=== PATIENT | male | born 1945 | race Caucasian/White ===

== ENCOUNTER → 2023-07-22 | Outpatient (CLI) | payer MEDICARE ==
--- NOTE | 2023-07-22 13:13 | XR ---
EXAMINATION TYPE: XR skull limited DATE OF EXAM: 07/22/2023 12:56 PM CLINICAL INDICATION:Male, 78 years old with history of Z10.10 retained metal fragments PRE MRI; [facility] COMPARISON: None. TECHNIQUE: Frontal and lateral views of the skull. FINDINGS: No evidence to suggest radiopaque foreign body. Soft tissues and osseous structures are within norm al limits. IMPRESSION: No evidence of radiopaque foreign body.
== END | disposition home or self-care (01) ==
LOC: RADXRMAIN 12:43
PROVIDERS: ATTEND Orthopaedic Surgery
DX: Z18.10 Retained metal fragments, unspecified (principal)
CPT/HCPCS: 70250

== ENCOUNTER → 2023-07-23 | Outpatient (CLI) | payer MEDICARE ==
--- NOTE | 2023-07-23 13:40 | CT ---
The EXAMINATION TYPE: CT lumbar spine wo con DATE OF EXAM: 07/23/2023 COMPARISON: Lumbar spine 07/23/2022 HISTORY: Low back pain CT DLP: [address] of the lumbar spine was performed. Bone and soft tissue window settings are submitted as well as coronal and sagittal reconstructions. L1-L2: Mild degenerative narrowing without disc bulge or herniation. No central stenosis present. No facet joint arthropathy. No evidence for foraminal encroachment. L2-L3: Moderate to severe degenerative disc space narrowing and vacuum disc seen. Posterior disc bulg e. Hypertrophy of the ligamentum flavum and facet joint arthropathy result in borderline to mild cent ral stenosis. Left greater than right foraminal encroachment. L3-L4: Decompressive laminectomy noted. Recurrent disease. Pedicular screws are in place. Postoperati ve alignment is anatomic. L4-L5: Severe disc desiccation with vacuum disc seen. Posterior disc bulge with partial encapsulating spur resulting in disc endplate complex. There is borderline to mild central stenosis present. Moder ate bilateral foraminal encroachment. L5-S1: Severe degenerative disc space narrowing. No significant disc bulge. Mild posterior hypertroph ic change mildly effaces the thecal sac and results in right lateral recess stenosis and right forami nal encroachment. No paraspinal masses are identified. Lumbar segments are free if fracture. Incidental left-sided non obstructive nephrolithiasis. IMPRESSION: 1. Disc disease as noted. 2. Borderline to mild central stenosis as outlined above. 3. Postoperative changes at L3-4.
--- NOTE | 2023-07-24 12:13 | MR ---
EXAMINATION TYPE: MR lumbar spine wo con DATE OF EXAM: 07/23/2023 3:31 PM CLINICAL INDICATION:Male, 78 years old with history of M54.50 low back pain, Low back pain into left side, Hx of surgery L4/5, Hx of Bladder cancer x15 years ago COMPARISON: 07/23/2023 CT TECHNIQUE: Multi planar, multi sequence imaging was performed utilizing: T1-weighted, T2-weighted, a nd turbo inversion recovery imaging of the lumbar spine. IV Contrast: (None if empty) FINDINGS: Alignment: The lumbar vertebral bodies have preserved heights and alignment. Cord: The conus medullaris and the distal spinal cord appear unremarkable with regards to their signa l intensity and morphology. Cauda equina bunching at the level of L2-L3 Bones/Discs: Postsurgical changes at L3-L4. Susceptibility artifact limits evaluation. Multilevel dis c degeneration changes with osteophyte formation, disc space narrowing, and facet joint arthropathy. Mild bony edema at the inferior endplate of L2 and the L3 vertebrae. T12-L1: No evidence of significant spinal canal stenosis or neural foraminal stenosis. L1-L2: Disc bulge and facet joint arthropathy result in mild to moderate spinal canal and mild bilate ral neural foraminal stenosis. L2-L3: Osteophyte formation and facet joint arthropathy result in severe spinal canal stenosis. The n eural foramen are mild to moderately narrowed. L3-L4: Postsurgical change with hardware in place. Mild spinal canal stenosis secondary to osteophyte formation and facet joint arthropathy. There is mild bilateral neural foraminal stenosis. L4-L5: Postsurgical change with hardware in place. Mild spinal canal stenosis secondary to osteophyte formation and facet joint arthropathy. There is mild bilateral neural foraminal stenosis. L5-S1: Disc space narrowing with osteophytes are present. The osteophytes on the right efface the for jaxson nerve roots. Facet joint arthropathy with mild bilateral neural foraminal stenosis. Spinal canal is patent. Significant spinal canal or neural foraminal stenosis in the remainder of the visualized levels. Other findings: None. IMPRESSION: 1. L2-L3 severe spinal canal stenosis secondary to osteophytes, facet joint arthropathy and disc bul ging. There is mild to moderate neural foraminal stenosis at this level. 2. Postsurgical changes with mild multilevel neural foraminal stenosis.
== END | disposition home or self-care (01) ==
LOC: RADCTMAIN 12:59
PROVIDERS: ATTEND Orthopaedic Surgery
DX: M48.061 Spinal stenosis, lumbar region without neurogenic claudication (principal); M51.36 Other intervertebral disc degeneration, lumbar region; M47.816 Spondylosis without myelopathy or radiculopathy, lumbar region; Z98.890 Other specified postprocedural states
CPT/HCPCS: 72131; 72148

== ENCOUNTER → 2023-10-25 | Outpatient (CLI) | payer MEDICARE ==
--- NOTE | 2023-10-25 11:18 | XR ---
EXAMINATION TYPE: XR chest 2V DATE OF EXAM: 10/25/2023 COMPARISON: None INDICATION: Presurgical clearance, shortness of breath TECHNIQUE: Frontal and lateral views of the chest are obtained. FINDINGS: The heart size is normal. Surrounding wires are present from prior CABG. The pulmonary vasculature is normal. The lungs are clear. IMPRESSION: 1. No acute pulmonary process.
[2023-10-25 17:55] LABS: INR 1.04 sec (0.93-1.11); Prothrombin Time 11.2 sec (9.9-11.9)
== END | disposition home or self-care (01) ==
LOC: LABPAT 09:56
PROVIDERS: ATTEND Orthopaedic Surgery
DX: Z01.818 Encounter for other preprocedural examination (principal); I25.2 Old myocardial infarction; I45.10 Unspecified right bundle-branch block; I44.0 Atrioventricular block, first degree; M43.16 Spondylolisthesis, lumbar region; M48.061 Spinal stenosis, lumbar region without neurogenic claudication; R58 Hemorrhage, not elsewhere classified; R05.9 Cough, unspecified; R06.02 Shortness of breath; R94.31 Abnormal electrocardiogram [ECG] [EKG]; Z22.322 Carrier or suspected carrier of Methicillin resistant Staphylococcus aureus
CPT/HCPCS: 36415; 71046; 85610; 86850; 86900; 86901; 87070; 93005

== ENCOUNTER → 2023-10-31 | Outpatient (CLI) | payer MEDICARE ==
[~2023-10-31] MED LIST: DOBUTamine DRIP for NUC MED 500 MG in DEXTROSE/WATER 1 250ML.BAG IV PRN; DOBUTamine DRIP for NUC MED 500 MG/250 ML BAG IV ONE
--- NOTE | 2023-10-31 10:25 | CA ---
Dobutamine Stress Echocardiogram Report Josias Oglesby Age: 78 Gender: M : 1945 Exam Date: 10/31/2023 09:47 Exam Location: [facility] Ordering Physician: Vijay Garcias DO Referring Physician: Daxa Vora [facility] Digester Capper: ADRIANA LUND Technologist: Ht (in): 69 Wt (lb): 235 Procedure CPT: Indication: I10 ESSENTIAL (PRIMARY) HYPERTENSION ICD-9 Codes: Rhythm: Patient History: Cardiac Medications: SEE LIST Medications in past 24 hours: Contrast: N/A Total Dose (mL): NA Stress Results Protocol: Dobutamine Peak Dose (???g/kg/min): 30 Duration (min:sec): Atropine:(mg) None Target HR: 119 Double Product: Resting HR: 67 Resting BP: 129 / 57 Peak HR: 123 Peak BP: 163 / 55 Max Predicted HR: 140 88 % Max Predicted HR Stress Summary: BP Response: Reason for Termination: Exceeded target heart rate (85% max predicted) Cardiac Symptoms: HOT FLASH ECG Analysis Resting EKG: Normal sinus rhythm with right bundle branch block Stress EKG: Patient was given intravenous dobutamine per protocol achieving 85% of predicted maximal heart rate without chest pain Arrhythmia: Echo Analysis Base Echo Analysis: Normal left ventricle a size wall motion systolic function Low Echo Anaylsis: Normal Peak Echo Analysis: Normal hyperdynamic response Recovery Echo: Normal MEASUREMENTS (Male/Female) Normal Values CONCLUSIONS Inconclusive EKG part of the stress test due to baseline EKG abnormalities Negative dobutamine stress echo Dr. Abhi Zapien MD (Electronically Signed) Final Date: 31 October 2023 10:25
== END | disposition home or self-care (01) ==
LOC: RADNMMAIN 10-29 09:12
PROVIDERS: ATTEND Family Medicine
DX: I10 Essential (primary) hypertension (principal); I25.42 Coronary artery dissection
CPT/HCPCS: 93351

== ENCOUNTER 2023-11-04 05:34 | Inpatient (IN) | payer MEDICARE ==
--- NOTE | 2023-11-03 10:33 | P.HPOR ---
History of Present Illness H&P Date: 10/25/23 .D:Date: 10/25/23 : 09:53am .T:Title: [facility] History and Physical Date of :[birth year] C63Wicmabccs: NKDA Age: 78 year Height: 5'9" Weight: 235 lbs BMI: 33.23 kg/m2 Occupation:Retired VAS: 9 Hand:Right IMPRESSION: It was my pleasure to have seen and examined Edward. I reviewed the patient's clinical syndrome, physical findings, and imaging studies during the appointment today. It is my impression that the patient has a diagnosis of. 1. Grade I spondylolisthesis of L2 on L3 2. L2-3 spondylosis with stenosis, severe 3. Bilateral lower extremity radiculopathy 4. Bilateral lower extremity weakness 5. Low back pain I outlined the natural course history without intervention and various interventional options. Spine Surgery Risk Review Mr. Oglesby is presenting for evaluation of low back and bilateral lower extremity pain, bilateral lower extremity numbness, tingling, and weakness. It was my pleasure to have seen and examined Mr. Oglesby. In our visit today we have had a chance to go over subjective complaints, physical examination findings and treatments including the natural course history without intervention and various interventional options. The patients imaging demonstrates: XRay Lumbar Multiview (AP, Lateral, Flexion, Extension) with AP pelvis; [address] [facility] on 05/23/23: - Re-reviewed with the patient today. Previous hardware is present that include rods and screws located L3-L4 level with prosthetic disc. Hardware is intact, no migration. Spondylotic and degenerative changes. 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 Vertebral body heights are preserved. No acute osseous abnormalities. AP Pelvis: No fractures or dislocation. Bilateral hip osteoarthritis is present. CT [facility] from07/23[facility]2023 of LumbarSpine: Images reviewed This demonstrates severe spondylosis from L2 through S1. There is previous fusion construct at L2 L3 L4 with reasonable fusion mass. There is autofusion L4 5 and L5-S1 with transitional anatomy. There is severe spondylosis L2-L3 with disc height collapse and endplate erosion facet arthrosis central and foraminal stenosis secondary to the collapse as well as osteophyte formation and adjacent segment disease. No acute fractures otherwise noted. No lesions.grade 1 spondylolisthesis L2-L3 MRI scancompleted [facility] from07/23/2023 of LumbarSpine: Images reviewed this again demonstrates fairly severe adjacent segment disease at L2-L3 with previous fusion construct below this. Multilevel spondylosis noted with essentially auto fusion from L4 through S1 with transitional anatomy. Adjacent segment disease at L2-L3 causes severe central stenosis as well as bilateral foraminal stenosis. There is turbulent flow proximal to this secondary to the stenosis. No acute fracture notedgrade 1 spondylolisthesis L2-L3 On physical exam, Mr. Oglesby demonstrates: A continued ache-like pain throughout the low back that radiates down into the buttocks and bilateral lower extremities. He states that most of his lower extremity pain persists around the bilateral anterior thigh. The patient states that his lower extremity pain is associated with numbness, tingling, and weakness. The patient states his pain worsens after prolonged walking without the use of his walker. The patient states that his symptoms have progressively worsened since he was last evaluated in office on 07/08/2023. I have explained to the patient that as their condition progresses it will cause further neurological deficits and eventual paralysis. Based on the patients imaging, physical exam, and the rapid progression and disabling nature of their symptoms, at this time I recommend surgery in the form of a: Stage I: L2-3 lateral interbody fusion followed by Stage II: L2-3 posterior stabilization and fusion . I discussed the risk and benefits of this procedure at length with Mr. Oglesby. The patient agreed to considered pursuing the procedure abovementioned. Prior to surgery, she should follow up with her PCP (Cardio, ID, IM etc) for clearance. Questions were invited and answered, and the patient wishes to proceed as outlined below. Currently, I am recommendin.Stage I: L2-3 lateral interbody fusion followed by Stage II: L2-3 posterior stabilization and fusion 2.Review of surgical risks and benefits as well as an educational packet on the proposed surgical procedure. Risks: All surgical procedures come with inherent risks, including those related to positioning, anesthesia, intraoperative findings, and postoperative complications. It is important to understand that surgery does not come with any guarantee of a successful outcome as complications and adverse events are always possible. The patient was given a handout in office today discussing the surgical procedure and risks associated with the intervention, both of which were discussed with the patient. These risks include but are not limited to the following: * Experiencing same, different or even worse symptoms in back, neck, arms, or legs compared to before surgery. Requiring further surgery or other forms of treatment presently or at some time in the future at same or other levels of the intended spine surgery. On an extreme but fortunately relatively rare basis severe complication such as blindness, stroke, heart attack, temporary and/or permanent nerve injury, paralysis, coma, or may occur, sometimes without known explanation. Surgical complications may include but are not limited to risk of infection, fluid accumulation in the surgical dissection site, including a seroma or hematoma, that requires additional surgery, wound drainage, bleeding, new numbness or weakness, vision changes/loss, spinal fluid leakage, non-healing and/or infected incision, headaches, difficulty or inability to swallow, hoarseness, hemopneumothorax, pneumothorax, impotence, retrograde ejaculation, vaginal dryness; injury to nerves, spinal cord, blood vessels, lymphatics or other vital organs (i.e., bowel injury, injury to the great vessels); heterotopic bone formation; complications related to the hardware such as screws, rods, cages including misplaced hardware, device failure, instrumentation at the wrong spine level, hardware fracture/breakage, or hardware loosening; vertebral failure of the spinal column above or below the newly placed hardware; retained surgical instrumentations or devices and the need for further surgery. * Medical risks of the planned spine surgery include but are not limited to generalized Infections to the whole body or local areas outside of the surgical site (sepsis), heart attack, bleeding, anaphylaxis, meningitis, seizure, epilepsy, hearing loss, burn berger, laceration of the head or other areas of the body, bruising, hypersensitivity of the skin, bladder over distension; allergic reaction; shoulder injury related to positioning; fat, blood and air clots to other areas of the body like heart, lungs, brain; failure of internal organs such as lungs, kidneys, liver and excessive bleeding. If blood transfusions are necessary, note that transfusions may cause intolerance reactions such as anaphylaxis or other complex reactions. Despite best efforts, the results of spine surgery might not heal in terms of bone, soft tissues such as skin, fascia, ligaments, and joints. Additionally, in order to achieve best possible results, spine surgery may be carried out beyond the initially planned levels and involve decompression, fusion including insertion of hardware at levels other than the original intended area of surgical interest change some portions of the procedure in order to ensure the best possible outcomes. With spine surgery and spinal fusion, there are different off label uses of instrumentation (devices, implants and hardware) as well as biological substances (bone morphogenic proteins, demineralized bone matrix) as well as using extra bone from allograft sources (i.e. cadaver bone) or autograft (iliac crest bone, ribs, or the spine itself). The patient has been given information about these practices and their inherent risks and benefits. [facility] is an educational center that serves as a training facility for neurosurgical and orthopedic MANAGER INTEL and Nursing students. Physician assistants are medically trained surgical providers who function in the outpatient, inpatient, and operating room setting under the direct supervision of the attending surgeon. [facility] has multiple operating rooms with single and overlapping rooms running daily. They currently function under the required guidelines as produced by the [facility] Finance Committee with regards to the overlapping rooms and will continue to comply with changes to this policy as they occur. The requirements include and are complied with as follows: (1) the critical portions of the overlapping rooms will not occur at the same time, (2) the attending physician will be physically present during the critical portions of the procedure and immediately available during the entire case, and (3) a back-up attending is designated should the primary attending not be immediately available. The patient has had a chance to review all the listed information, has been given print outs detailing this information, and has had all his/her questions answered to their satisfaction. It was my pleasure to have seen and examined Mr. Oglesby. In our visit today we have had a chance to go over my understanding of our patient's current condition, the natural course history without intervention and various interventional options. Questions were invited and answered, and the patient wishes to proceed as outlined above. I have seen and examined the patient for 25 minutes and we have spent more than 50% of the time in repeat and detailed counseling about the patient's condition, its natural course history with out and as much as can be predicted with surgery and re-review of various surgical treatment options. In conclusion, Mr. Oglesby requested we proceed with the above suggested surgery and are willing to accept risks and limitations of the suggested surgery as nature of the disease process and our best attempts at treatment for the condition. Thank you again for allowing us to be part of your patient's care. Please don't hesitate to contact me if you have any further questions. Follow-up: Post procedure Patient Education: (Informational booklet, instructions, etc) given at today's appointment: Yes .ED:Patient Education: Y Medications Reviewed: YES In our visit today Mr. Oglesby and I have had a chance to go over my understanding of the patient's current condition, the natural course history without intervention and various interventional options. Questions were invited and answered, and the patient wishes to proceed as outlined above. I will be sure to keep you updated afterMr. Oglesby returns here for further follow-up. Thank you again for your referral. Please do not hesitate to contact me if you have any further questions. Signed and authenticated by: Buster Chiu DO [facility] Complex and Minimally Invasive Spine Surgery [address] [place] [id number] This message is confidential, intended only for the named recipient(s) and may contain information that is privileged or exempt from disclosure under applicable law. If you are not the intended recipient(s), you are notified that the dissemination, distribution or copying of this information is strictly prohibited. If you received this message in error, please notify the sender then delete this message. Patient verbalizes understanding of the information discussed. The above note was initiated by Nancy De Jesus, physician recording social media assistant for Dr. Buster Chiu. This note has been reviewed by Dr. Chiu, who has made his personal changes and impressions for this document. CC: Vijay Garcias D.O. # SIGNED BY Buster Chiu ([facility])10/31/2023 07:53AM Past Medical History Past Medical History: Coronary Artery Disease (CAD), GERD/Reflux, Hyp erlipidemia, Hypertension, Myocardial Infarction (MS), Osteoarthritis (OA), Prostate Disorder Additional Past Medical History / Comment(s): trigeminal neuralgia Last Myocardial Infarction Date:: unk History of Any Multi-Drug Resistant Organisms: MRSA Date of last positivie culture/infection: 06/06/23 MDRO Source:: Cutaneous abscess Past Surgical History: Back Surgery, Cholecystectomy, Coronary Bypass/CABG, Heart Catheterization With Stent, Orthopedic Surgery Additional Past Surgical History / Comment(s): neck surgery & lumbar fusion,. right ankle surgery. 4 vessel bypass >10 yrs. ago in [place] Past Anesthesia/Blood Transfusion Reactions: No Reported Reaction Date of Last Stent Placement:: unk Smoking Status: Former smoker - Past Family History Mother Family Medical History: Cancer Additional Family Medical History / Comment(s): colon and stomach Medications and Allergies Home Medications Medication Instructions Recorded Confirmed Type Aspirin [Adult Low Dose Aspirin EC] 81 mg PO DAILY 10/31/22 10/29/23 History Omeprazole 20 mg PO DAILY 10/31/22 10/29/23 History Simvastatin 40 mg PO HS 10/31/22 10/29/23 History amLODIPine [Norvasc] 2.5 mg PO DAILY 10/31/22 10/29/23 History carBAMazepine 200 mg PO BID 10/31/22 10/29/23 History lisinopriL [Zestril] 20 mg PO DAILY 10/31/22 10/29/23 History tiZANidine [Zanaflex] 4 mg PO HS 10/31/22 10/29/23 History Cholecalciferol (Vitamin D3) 50 mcg PO MO 10/29/23 10/29/23 History [Vitamin D3 (50 Mcg = 2000 Iu)] Citalopram Hydrobromide [CeleXA] 40 mg PO DAILY 10/29/23 10/29/23 History Cyclobenzaprine [Flexeril] 10 mg PO HS 10/29/23 10/29/23 History Metoprolol Succinate (ER) [Toprol 100 mg PO DAILY 10/29/23 10/29/23 History Xl] Tamsulosin [Flomax] 0.4 mg PO DAILY 10/29/23 10/29/23 History Vit C/E/Zn/Coppr/Lutein/Zeaxan 1 each PO DAILY 10/29/23 10/29/23 History [Preservision Areds 2 Softgel] Allergies Allergy/AdvReac Type Severity Reaction Status Date / Time No Known Allergies Allergy Verified 10/29/23 09:48 Physical Examination Osteopathic Statement: *. No significant issues noted on an osteopathic structural exam other than those noted in the History and Physical/Consult.
[~2023-11-04 05:34] MED LIST changes: -DOBUTamine DRIP for NUC MED 500 MG in DEXTROSE/WATER 1 250ML.BAG IV PRN; -DOBUTamine DRIP for NUC MED 500 MG/250 ML BAG IV ONE; +TRANEXAMIC 1,000 MG/100ML-NACL 1,000 MG in SALINE 1 100ML.BAG IVPB PRN
[2023-11-04] MEDS ORDERED: LIDOCAINE 1% (10MG/ML) FOR IV START INTRADERMA PRN (06:16)
[2023-11-04] MEDS ORDERED: MIDAZOLAM 2 MG/2 ML VIAL IV PRN (06:16)
[2023-11-04] MEDS: LACTATED RINGERS 1,000 ML IV SCH (06:45)
[2023-11-04] MEDS: MIDAZOLAM 2 MG/2 ML VIAL IVP ONE (07:03)
[2023-11-04] MEDS: ACETAMINOPHEN TAB 500 MG TAB PO PRN (07:15)
[2023-11-04] MEDS: GABAPENTIN 300 MG CAP PO PRN (07:15)
[2023-11-04] MEDS: ONDANSETRON 4 MG/2 ML VIAL IVP PRN (07:15)
[2023-11-04] MEDS: DEXAMETHASONE SOD PHOSPHATE 4 MG/ML 1 ML VIAL IV ONE (07:15)
[2023-11-04] MEDS ORDERED: LIDOCAINE 1% INJ 10MG/ML (20 ML MDV) ONE (07:25)
[2023-11-04] MEDS ORDERED: WATER FOR INJECTION, STERILE 10 ML VIAL IV ONE (07:25)
[2023-11-04] MEDS ORDERED: VASOPRESSIN 20 UNIT/ML 1 ML VIAL ONE (07:25)
[2023-11-04] MEDS ORDERED: GLYCOPYRROLATE 0.2 MG/ML 2 ML VIAL ONE (07:25)
[2023-11-04] MEDS ORDERED: TRANEXAMIC 1,000 MG/100ML-NACL PREMIX BAG ONE (07:25)
[2023-11-04] MEDS ORDERED: PROPOFOL 10 MG/ML 20 ML VIAL IV ONE (07:25)
[2023-11-04] MEDS ORDERED: ePHEDrine 50 MG/ML 1 ML VIAL ONE (07:25)
[2023-11-04] MEDS ORDERED: SUCCINYLCHOLINE CHLORIDE 200 MG/10 ML VIAL IV ONE (07:25)
[2023-11-04] MEDS ORDERED: MIDAZOLAM 2 MG/2 ML VIAL ONE (07:25)
[2023-11-04] MEDS ORDERED: PHENYLEPHRINE 10 MG/ML VIAL ONE (07:25)
[2023-11-04] MEDS ORDERED: fentaNYL (PF) 50 MCG/ML 2 ML AMP ONE (07:25)
[2023-11-04] MEDS: THROMBIN (BOVINE) 5,000 UNIT VIAL TOPICAL ONE (08:23)
[2023-11-04] MEDS: LIDOCAINE 2%-EPI 1:100,000 20 ML VIAL SQ ONE (10:01)
[2023-11-04] MEDS: BUPIVACAINE (PF) 0.5% 30 ML VIAL SQ ONE (10:01)
[2023-11-04] MEDS: LACTATED RINGERS 1,000 ML IV ONE (10:13)
[2023-11-04] MEDS ORDERED: HYDROmorphone 1 MG/ML 1 ML SYRINGE IVP PRN (11:10)
[2023-11-04] MEDS ORDERED: MAGNESIUM HYDROXIDE 2,400 MG/30 ML CUP PO PRN (11:10)
[2023-11-04] MEDS: HYDROmorphone 0.5 MG/0.5 ML SYRINGE IVP PRN ×2 (11:53→20:06)
[2023-11-04] MEDS: LABETALOL SYRINGE 5 MG/ML (4 ML SYR) IV ONE (11:54)
[2023-11-04] MEDS: ENALAPRILAT 1.25 MG/ML 1 ML VIAL IV ONE (11:54)
[2023-11-04] MEDS: HYDROmorphone 0.5 MG/0.5 ML SYRINGE IVP ONE ×3 (12:18→12:50)
[2023-11-04] MEDS: METOPROLOL TARTRATE 5 MG/5 ML VIAL IVP ONE (13:01)
--- NOTE | 2023-11-04 14:37 | FL ---
EXAMINATION TYPE: FL guidance operating room, XR lumbar spine 2 or 3V DATE OF EXAM: 11/04/2023 Comparison: None Clinical History: 78-year-old male PLDF Findings: lumbar spondylolisthesis posterior and interbody fusion changes. Fluoro time 1 min 19 seconds. 9.6170 Gycm2 DAP Impression: Intraoperative fluoroscopy as above.
[2023-11-04] MEDS: ACETAMINOPHEN TAB 325 MG TAB PO SCH (15:41)
[2023-11-04] MEDS: ONDANSETRON 4 MG/2 ML VIAL IVP ONE (15:42)
[2023-11-04] MEDS: HYDROcodone/APAP 10-325MG 1 EACH TAB PO PRN (16:23)
[2023-11-04] MEDS: GABAPENTIN 300 MG CAP PO SCH (16:23)
--- NOTE | 2023-11-04 19:48 | P.OP ---
Date of Procedure: 11/04/23 Preoperative Diagnosis: 1. Grade I spondylolisthesis of L2 on L3 2. L2-3 spondylosis with stenosis, severe 3. Bilateral lower extremity radiculopathy 4. Bilateral lower extremity weakness 5. Low back pain Postoperative Diagnosis: 1. Grade I spondylolisthesis of L2 on L3 2. L2-3 spondylosis with stenosis, severe 3. Bilateral lower extremity radiculopathy 4. Bilateral lower extremity weakness 5. Low back pain Procedure(s) Performed: 1. L2-3 LATERAL INTERBODY FUSION 2. L2-4 REVISION POSTERIOLATERAL INSTRUMENTED FUSION 3. INSTRUMENTATION L2-4 4. REMOVAL OF SEGMENTAL HARDWARE L3-4 5. INSERTION OF BIOMECHANICAL DEVICE L2-3 6. USE OF UEIS NAVIGATION FOR SCREW PLACEMENT. USE OF [place] CODES: 97515, 14269, 17269, 84191, 86119, 56035, 24354 Implants: GLOBUS RISE L CAGE 10MM X 55MM X 18MM [place] EVEREST SCREWS AND RODS MAGNATOS, AUTOGRAFT Anesthesia: GETA Surgeon: Buster Chiu Bicycle Technician #1: Benjamin Mcginnis (WAS PRESENT AND ASSISTED WITH ALL ASPECTS OF THE CASE FROM POSITION TO CLOSURE) Estimated Blood Loss (ml): 150 IV fluids (ml): 1,500 Urine output (ml): 300 Pathology: none sent Condition: stable Disposition: PACU Indications for Procedure: Mr. Oglesby is presenting for evaluation of low back and bilateral lower extremity pain, bilateral lower extremity numbness, tingling, and weakness. It was my pleasure to have seen and examined Mr. Oglesby. In our visit today we have had a chance to go over subjective complaints, physical examination findings and treatments including the natural course history without intervention and various interventional options. The patients imaging demonstrates: XRay Lumbar Multiview (AP, Lateral, Flexion, Extension) with AP pelvis; 5 views taken at [facility] on 05/23/23: - Re-reviewed with the patient today. Previous hardware is present that include rods and screws located L3-L4 level with prosthetic disc. Hardware is intact, no migration. Spondylotic and degenerative changes. 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 Vertebral body heights are preserved. No acute osseous abnormalities. AP Pelvis: No fractures or dislocation. Bilateral hip osteoarthritis is present. CT [facility]07[facility]23 of LumbarSpine: Images reviewed This demonstrates severe spondylosis from L2 through S1. There is previous fusion construct at L2 L3 L4 with reasonable fusion mass. There is autofusion L4 5 and L5-S1 with transitional anatomy. There is severe spondylosis L2-L3 with disc height collapse and endplate erosion facet arthrosis central and foraminal stenosis secondary to the collapse as well as osteophyte formation and adjacent segment disease. No acute fractures otherwise noted. No lesions.grade 1 spondylolisthesis L2-L3 MRI scancompleted [facility] from07/23/2023 of LumbarSpine: Images reviewed this again demonstrates fairly severe adjacent segment disease at L2-L3 with previous fusion construct below this. Multilevel spondylosis noted with essentially auto fusion from L4 through S1 with transitional anatomy. Adjacent segment disease at L2-L3 causes severe central stenosis as well as bilateral foraminal stenosis. There is turbulent flow proximal to this secondary to the stenosis. No acute fracture notedgrade 1 spondylolisthesis L2-L3 On physical exam, Mr. Oglesby demonstrates: A continued ache-like pain throughout the low back that radiates down into the buttocks and bilateral lower extremities. He states that most of his lower extremity pain persists around the bilateral anterior thigh. The patient states that his lower extremity pain is associated with numbness, tingling, and weakness. The patient states his pain worsens after prolonged walking without the use of his walker. The patient states that his symptoms have progressively worsened since he was last evaluated in office on 07/08/2023. I have explained to the patient that as their condition progresses it will cause further neurological deficits and eventual paralysis. Based on the patients darshan ging, physical exam, and the rapid progression and disabling nature of their symptoms, at this time I recommend surgery in the form of a: Stage I: L2-3 lateral interbody fusion followed by Stage II: L2-3 posterior stabilization and fusion . I discussed the risk and benefits of this procedure at length with Mr. Oglesby. The patient agreed to considered pursuing the procedure abovementioned. Prior to surgery, she should follow up with her PCP (Cardio, ID, IM etc) for clearance. Questions were invited and answered, and the patient wishes to proceed as outlined below. Currently, I am recommendin.Stage I: L2-3 lateral interbody fusion followed by Stage II: L2-3 posterior stabilization and fusion Description of Procedure: L2-3 lateral interbody fusion with posterolateral instrumented fusion (DONNELL) The patient was seen and examined in the preoperative area. All preoperative protocols were followed. Informed consent was obtained, risks and benefits of the procedure were discussed at length. Risks including bleeding infection damage to the surrounding tissue and risk of reoperation were discussed with the patient. Risk of anesthesia up to and including was discussed with the patient. These are outlined in the risk review. They were willing to accept these risks and all of the risks of surgery. The patient was given a weight- based dose of antibiotics in the form of 2 g Ancef. The patient was seen and evaluated by the anesthesia team who deemed them fit for surgery. The site was marked, the patient was willing to proceed with the procedure. The patient was transferred to the operative suite by the Department of anesthesia. They were then drifted off to sleep by the department anesthesia and GETA was performed. The patient tolerated this well. Avila catheter was placed by nursing staff, atraumatically. Once confirmation of lines and ventilation the patient was transferred to a flat Geovanni table and placed in the right lateral decubitus position. Axillary roll was placed. Hip Bump was placed. All bony prominences including wrists, elbows, axilla, chest, hips, and thighs, and feet were padded very well. Special attention was paid to the genitalia and these were padded accordingly. SCDs were placed on bilateral lower extremities and were connected. Arms were well padded and placed on armboard pillows. The patient was taped to the table and secured. Once in position, again we confirmed good ventilation capabilities and that lines were running appropriately. The patient's left lateral lumbar and flank was then exposed. 1010s were placed outlining the incision site. Standard alcohol was used to clean the incision site and allowed to dry. C-arm was used to biomark the patient and confirm level for incision which was marked with a skin marker. Operative briefing was performed with all teams and everyone in agreement to proceed. The patient was then prepped and draped in a normal sterile fashion. Timeout was then performed and all parties were in agreement with the procedure to be performed. Transverse skin incision was then made over the previously biomarker area and dissection taken down with blunt dissection to the external oblique fascia. This was then identified and two large abril clamps then used for blunt dissection through the external, internal and transverse abdominis inline with the level to be exposed. Once the transversalis fascia was identified the retroperitoneal space was entered bluntly and blunt dissection was used to sweep abdominal contents anteriorly. Retroperitoneal fat was identified and the psoas as well as TVP was palpated. Once this was identified a blunt probe was placed with the help of biplanar fluoroscopy at the L2-3 level. Once it was in good position in the posterior ? of the body and at the disc space, a wire was passed. IONM was used to stimulate the probes before at 2 and 5 mA with no responses in all 4 quadrants. Dilator was then placed over the probe and stimulated and there was no response again. Retractor blades were then chosen and retractor placed and secured in position and to the table. The blades were carefully then opened slightly and the IONM probe sent down all 4 quadrants again without any responses at 2, 5 and 10 mA. The retractor was then opened further for visualization and the dilators and wire removed. Disc space was visible and a combination of bipolar and EC were used to clean margins and identify disc. Once it was identified, rongeur was used to remove outer osteophytes. A Sanabria was then used to pass through the disc space under fluoroscopic guidance through to the opposite side to release the osteophytes on this side as well. Once these were released sequential box osteotomes were passed in a similar fashion until the disc had been completely removed. Good bleeding endplates were noted. Pituitary was used to remove any floating or excess fragments. The trial was then placed and sized. The disc space was irrigated. A 55 mm x 18 mm 10-17 mm expandable lateral leg spine cage was then selected and placed under fluoroscopic guidance. The cages then expanded to its desired height, reducing a and restoring disc space height and lordosis and alignment. The cage was backfilled with ifactor, arthrocell and contour. The national sales director was then removed and the area inspected. No injury was evident, minimal bleeding was cauterized and AP and Lateral images confirmed good placement of cage. The retractor was then removed under direct visualization at 9 min in the psoas. The wound was copiously irrigated with NSS. The deep fascia was then closed with 0 Vicryl superficial closed with 2-0 Vicryl and the skin was closed with romaine. It was cleaned it was then dressed sterilely with an operative foam dressing. The patient was transferred back to their hospital bed atraumatically and the beds were flipped for the second stage posteriorly. Pt was then positioned prone on a [employer] spine top table. All bony prominences including wrists, elbows, axilla, chest, hips, and thighs, and feet were padded very well. Special attention was paid to the genitalia and these were padded accordingly. SCDs were placed on bilateral lower extremities and were connected. Arms were well padded and placed on armboard pillows. The patient was taped to the table and secured. Once in position, again we confirmed good ventilation capabilities and that lines were running appropriately. The patient's left lateral lumbar and flank was then exposed. 1010s were placed outlining the incision site. Standard alcohol was used to clean the incision site and allowed to dry. C-arm was used to biomark the patient and confirm level for incision which was marked with a skin marker. Operative briefing was performed with all teams and everyone in agreement to proceed. The patient was then prepped and dr aped in a normal sterile fashion. Timeout was then performed and all parties were in agreement with the procedure to be performed. Paramedian incisions were made over the previously marked area and a minimally invasive Sofia approach was taken down to the old hardware at L3-4. This was exposed bilaterally along with the facet joints and the TP from L2-4. Old hardware was removed. L4 screws were loose bilaterally. Then, skin nicks were then made over the PSIS on the Right side and pins placed for the Mo-DV Navigation tracker system. This was then secured. A 3D Ziehm spin was then o btained and registered. Once it was confirmed to be accurate, pedicles were targeted through bilateral skin incisions over L2 and L3 and L4. Navigated Johan was used to plan screws followed by a navigated drill bit. Once drilled a wire was placed in the pedicle and they were all confirmed to be in good position on AP and Lateral imaging. Screws were then placed over the wires using lateral imaging. Once in position screws were tested and all tested above 20 mA. Rods were then selected and bent appropriately. Posterolateral gutters were decorticated with a high speed david and Magnatos bio placed in the PL gutters for fusion. Rods were then placed through tulip heads, subfascial and secured with set screws. Set screws were then finally tightened. Tabs were broken off. AP and Lateral imaging confirmed good placement of screws with reduction of height, lordosis and alignment. Wounds were copiously irrigated with NSS. Local anesthetic is placed remote to the incision for the block. The deep fascia was closed with 0 vicryl. Superficial closed with 2-0 Vicryl and skin closed with romaine. Wound edges approximated very well. Wounds were then cleaned and dressed sterilly with optifoam dressing. The patient was then transferred to their hospital bed atraumatically. Patient was then awakened and extubated by the department of anesthesia having tolerated the procedure very well with no complications. They were transferred to the postoperative care unit in stable condition.
[2023-11-04] MEDS: carBAMazepine 200 MG TAB PO SCH (21:51)
[2023-11-04] MEDS: ATORVASTATIN 20 MG TAB PO SCH (21:51)
[2023-11-04] MEDS: tiZANidine 4 MG TAB PO SCH (21:51)
[2023-11-04] MEDS: CYCLOBENZAPRINE 5 MG TAB PO PRN (21:51)
[2023-11-04] MEDS: FUROSEMIDE 10 MG/ML 2 ML VIAL IV STA (23:23)
--- NOTE | 2023-11-05 00:04 | XR ---
EXAM: XR Chest, 1 View CLINICAL HISTORY: Desat, congestion TECHNIQUE: Frontal view of the chest. COMPARISON: Chest 2 views dated 10/25/2023 FINDINGS: Lungs: Diffuse reticulonodular interstitial changes with equalization of the pulmonary vasculature. No lobar consolidation. Pleural space: Unremarkable. No pneumothorax. No large pleural effusion. Heart: Postsurgical changes consistent with prior CABG. The cardiac silhouette is within normal limits. Mediastinum: The mediastinal contours are stable. The trachea is midline. Bones/joints: Intact sternotomy wires. No acute osseous abnormality. IMPRESSION: Diffuse reticulonodular interstitial changes with equalization of the pulmonary vasculature. Favor pulmonary vascular congestion over interstitial infection. No focal airspace consolidation. No large pleural effusion or pneumothorax.
[2023-11-05] MEDS: BENZOCAINE/MENTHOL LOZENG 1 EACH LOZENGE MUCOUS MEM PRN (03:46)
[2023-11-05 06:28] LABS: Glucose,Whole Blood 147 mg/dL (70-110)
[2023-11-05] MEDS: IPRATROPIUM-ALBUTEROL 3 ML NEB ONE (06:36)
[2023-11-05] MEDS: IPRATROPIUM-ALBUTEROL 3 ML NEB IH STA (06:36)
[2023-11-05] MEDS: FUROSEMIDE 10 MG/ML 2 ML VIAL IV ONE (06:47)
--- NOTE | 2023-11-05 06:55 | P.PN ---
Subjective Progress Note Date: 11/05/23 Principal diagnosis: 1. Grade I spondylolisthesis of L2 on L3 2. L2-3 spondylosis with stenosis, severe 3. Bilateral lower extremity radiculopathy 4. Bilateral lower extremity weakness 5. Low back pain Patient seen and examined this morning. Upon entering the room audible wheezing from patient is noted. Patient has developed shortness of breath and difficulty with breathing. Chest x-ray taken last night demonstrates pulmonary vasculature congestion. Lasix 20 mg was provided with no relief. Patient is currently on 5 L nasal cannula with O2 saturation at 91%. Heart rate currently 105. Initiated A-team to assist with respiratory distress. Surgical incisions to the left lateral abdomen and paralumbar spine, dressings are intact with some shadowing noted. Dressings will be changed once patient is medically stable. Patient did have complaint of pain into the bilateral hips, repositioned with pillows. Will continue to monitor. Objective - Vital Signs Vital signs: Vital Signs Temp 98.5 F 11/05/23 01:35 Pulse 100 11/05/23 01:35 Resp 22 11/05/23 01:35 BP 125/62 11/05/23 01:35 Pulse Ox 91 L 11/05/23 01:35 FiO2 Intake & Output 11/04/23 11/04/23 11/05/23 06:59 18:59 06:59 Intake Total 100 3250 Output Total 515 900 Balance 100 2735 -900 Weight 106.8 kg Intake: IV 100 3250 Output: Urine 365 900 Estimated Blood Loss 150 Other: Voiding Method Indwelling Catheter - Exam Physical Examination General: The patient is awake and alert, mild to moderate distress due to respiratory congestion Skin: Skin is warm and dry with no obvious rashes or lesions. Surgical incisions to the left lateral abdomen and paralumbar spine, dressings are intact with shadowing noted. Dressings will be changed when medically stable. Eye: Pupils are equal, round and reactive to light, extra-ocular movements are intact; there is normal conjunctiva bilaterally. Neck: The neck is supple, there is no tenderness and ROM intact. Cardiovascular: There is a regular rate and rhythm. No murmur, rub or gallop is appreciated. Respiratory: Respirations are labored, audible wheezing noted. Gastrointestinal: Soft, non-distended, non-tender abdomen. Back: There is no tenderness to palpation in the midline, paralumbar, parathoracic or buttocks region. There is no obvious deformity . Musculoskeletal: ROM limited secondary to pain and stiffness from surgical procedure. Muscle strength in all major muscle groups of bilateral upper extremities 5/5, bilateral lower extremities 4/5. Neurological: CN 2-12 intact. There are no obvious motor or sensory deficits. Movement and coordination equal and intact. Sensory exam to light touch intact C5-T1 and intact from L2-S1. Reflexes 2/4 in bilateral upper and lower extremities. Negative Hoffmans, babinski, and clonus signs. Psychiatric: Cooperative, appropriate mood & affect, normal judgment. Assessment and Plan Assessment: Postop day 1: Stage I: L2-L3 lateral fusion, stage II: L2-L3 posterior stabilization 1. Grade I spondylolisthesis of L2 on L3 2. L2-3 spondylosis with stenosis, severe 3. Bilateral lower extremity radiculopathy 4. Bilateral lower extremity weakness 5. Low back pain Plan: -A-team has been initiated for respiratory distress -Appreciate search engine optimization consultant and team management. -Activity: Ambulate QID, OOB all meals, up and about, limit lifting bending twisting to less than 5 lbs. Use walker or cane if needed for stability. -Daily PT/OT, increase ambulation strength and balance. -Pain control: Adequate at this time -Meds: reviewed -GI ppx: senna, Miralax -DC yin when up and about, bedside commode if needed -DVT PPX: OK to restart Heparin tonight -Hygiene: Shower today. Maintain dressing clean and dry. Meticulous cleaning after BMs away from the incision site -Encourage IS 10x/hr -Dispo: Clinically pending *I reviewed and discussed this case with my attending Dr. Chiu, whom has reviewed this chart and films and is in agreement with assessment and plan of care as outlined above. I have personally seen and examined the patient, performed the documentation and the assessment and plan as written. Number of minutes spent on the visit: 20m
[2023-11-05] MEDS: IPRATROPIUM-ALBUTEROL 3 ML NEB INHALATION SCH (07:35)
[2023-11-05] MEDS: lisinopriL 20 MG TAB PO SCH (08:11)
[2023-11-05] MEDS: PANTOPRAZOLE 40 MG TABLET PO SCH (09:20)
[2023-11-05] MEDS: TAMSULOSIN 0.4 MG CAP.ER.24H PO SCH (09:20)
[2023-11-05] MEDS: METOPROLOL SUCCINATE (ER) 100 MG TAB.ER.24H PO SCH (09:21)
[2023-11-05] MEDS: CITALOPRAM HYDROBROMIDE 20 MG TAB PO SCH (09:21)
[2023-11-05] MEDS: amLODIPine 2.5 MG TAB PO SCH (09:21)
[2023-11-05 09:33] LABS: Basophils # (A) 0.03 X 10*3/uL (0.00-0.10); Basophils % (A) 0.3 %; Eosinophils # (A) 0 X 10*3/uL (0.04-0.35); Eosinophils % (A) 0 %; HCT 37.5 % (39.6-50.0); Lymphocytes # (A) 0.77 X 10*3/uL (0.90-5.00); Lymphocytes % (A) 8.4 %; MCH 30.9 pg (27.0-32.0); MCV 96.6 FL (80.0-97.0); Mean Platelet Volume 11.3 FL (9.5-12.2); Monocytes # (A) 0.31 X 10*3/uL (0.20-1.00); Monocytes % (A) 3.4 %; NRBC Per 100 WBC 0 X 10*3/uL (0.00-0.01); Neutrophils # (A) 8.05 X 10*3/uL (1.80-7.70); Neutrophils % (A) 87.8 %; Platelet Count 187 X 10*3/uL (140-440); RBC 3.88 X 10*6/uL (4.40-5.60); RBC Morphology Normal (Normal); RDW 13.2 % (11.5-14.5); WBC 9.17 X 10*3/uL (4.50-10.00)
--- NOTE | 2023-11-05 10:54 | P.ANPRN ---
Procedure Note - Anesthesia - Invasive Line Left Arterial Line Time Out Performed: Yes Date of Procedure: 11/04/23 Time of Procedure: 07:14 Location of Patient: PreOp Preparation: Sterile Prep, Sterile Dressing Arterial Line Location: Radial Ultrasound Used: No Purpose - Visualization and Identification of Vasculature: No Image Stored and Saved: No Narrative: Invasive line placement per sterile protocol utilized.
[2023-11-05 11:27] LABS: BUN/Creat Ratio 20.57 Ratio (12.00-20.00); Blood Urea Nitrogen 28.8 mg/dL (9.0-27.0); Chloride 98 mmol/L (96-109); Glucose 132 mg/dL (70-110); Sodium 136 mmol/L (135-145)
[2023-11-05] MEDS ORDERED: DEXTROSE 50% SYRINGE 50 ML IVP PRN ×2 (15:02)
--- NOTE | 2023-11-05 15:37 | P.CONS ---
History of Present Illness - Reason for Consult Consult date: 11/05/23 Medical management hypoxia Requesting physician: Buster Chiu - Chief Complaint Status post L2-L3 lateral fusion, L2-L3 posterior stabilization - History of Present Illness This is an 78-year-old gentleman with past medical history significant for morbid obesity, prior nicotine dependence for 15 years-quit smoking 30 to 35 years ago, occasional alcohol consumption, CAD, MN, CABG, negative dobutamine stress test October 31, 2023 reports inconclusive EKG prior to stress due to baseline EKG abnormalities,Echo 05/21/2023 reported normal LV size and systolic function with borderline concentric LVH, no pulmonary hypertension,gastroesophageal reflux disease, hypertension, osteoarthritis, prostate disorder, trigeminal neuralgia, prior neck surgery and lumbar fusion and multiple other medical issues status post stage I: L2-L3 lateral fusion, stage II L2-L3 posterior stabilization. Earlier this morning, woke up shortness of breath, congested, wheezing, spitting up phlegm, hypoxic-requiring 5 L nasal cannula to maintain O2 sat of 91%, a team called. Lasix and nebulized bronchodilators ordered.chest x-ray at midnight reported diffuse reticulonodular interstitial changes with equalization of the pulm vascular. Incentive spirometer up to 1999. Denies passing flatus.Norvasc and DENISE inhibitor placed on hold, blood pressure soft. Reports positive pain. Denies numbness or tingling of extremities. denies chest pain, palpitations. Afebrile, Tmax 99.1, normal WBC. Hemoglobin 12, platelets 187. BUN 28.8 creatinine 1.4. Early a.m. blood sugars 130s to 140s, sliding scale and hemoglobin A1c ordered NovoLog sliding scale and hemoglobin A1c ordered. Review of Systems ROS Statement: Those systems with pertinent positive or pertinent negative responses have been documented in the HPI. ROS Other: All systems not noted in ROS Statement are negative. Past Medical History Past Medical History: Coronary Artery Disease (CAD), GERD/Reflux, Hyperlipidemia, Hypertension, Myocardial Infarction (MN), Osteoarthritis (OA), Prostate Disorder Additional Past Medical History / Comment(s): trigeminal neuralgia Last Myocardial Infarction Date:: unk History of Any Multi-Drug Resistant Organisms: MRSA Year Discovered:: 06/06/23 MDRO Source:: Cutaneous abscess Past Surgical History: Back Surgery, Cholecystectomy, Coronary Bypass/CABG, Heart Catheterization With Stent, Orthopedic Surgery Additional Past Surgical History / Comment(s): neck surgery & lumbar fusion,. right ankle surgery. 4 vessel bypass >10 yrs. ago in [place] Past Anesthesia/Blood Transfusion Reactions: No Reported Reaction Date of Last Stent Placement:: unk Smoking Status: Former smoker - Past Family History Mother Family Medical History: Cancer Additional Family Medical History / Comment(s): colon and stomach Medications and Allergies Home Medications Medication Instructions Recorded Confirmed Type Aspirin [Adult Low Dose Aspirin EC] 81 mg PO DAILY 10/31/22 10/29/23 History Omeprazole 20 mg PO DAILY 10/31/22 10/29/23 History Simvastatin 40 mg PO HS 10/31/22 10/29/23 History amLODIPine [Norvasc] 2.5 mg PO DAILY 10/31/22 10/29/23 History carBAMazepine 200 mg PO BID 10/31/22 10/29/23 History lisinopriL [Zestril] 20 mg PO DAILY 10/31/22 10/29/23 History tiZANidine [Zanaflex] 4 mg PO HS 10/31/22 10/29/23 History Cholecalciferol (Vitamin D3) 50 mcg PO MO 10/29/23 10/29/23 History [Vitamin D3 (50 Mcg = 2000 Iu)] Citalopram Hydrobromide [CeleXA] 40 mg PO DAILY 10/29/23 10/29/23 History Cyclobenzaprine [Flexeril] 10 mg PO HS 10/29/23 10/29/23 History Metoprolol Succinate (ER) [Toprol 100 mg PO DAILY 10/29/23 10/29/23 History Xl] Tamsulosin [Flomax] 0.4 mg PO DAILY 10/29/23 10/29/23 History Vit C/E/Zn/Coppr/Lutein/Zeaxan 1 each PO DAILY 10/29/23 10/29/23 History [Preservision Areds 2 Softgel] Allergies Allergy/AdvReac Type Severity Reaction Status Date / Time No Known Allergies Allergy Verified 10/29/23 09:48 Physical Exam Vitals: Vital Signs Temp Pulse Pulse Resp BP BP BP 11/05/23 13:00 20 11/05/23 12:20 98.8 F 84 20 94/64 11/05/23 11:33 92 11/05/23 11:23 88 11/05/23 10:26 11/05/23 08:00 111 H 20 11/05/23 07:32 99.1 F 111 H 27 H 102/64 11/05/23 06:49 106 H 11/05/23 06:41 11/05/23 06:37 105 H 11/05/23 06:35 111 H 24 116/66 11/05/23 01:35 98.5 F 100 22 125/62 11/04/23 20:00 98.1 F 103 H 20 132/74 11/04/23 17:10 98.2 F 90 16 150/68 11/04/23 15:00 86 16 152/79 Pulse Ox 11/05/23 13:00 11/05/23 12:20 94 L 11/05/23 11:33 11/05/23 11:23 11/05/23 10:26 99 11/05/23 08:00 11/05/23 07:32 92 L 11/05/23 06:49 11/05/23 06:41 91 L 11/05/23 06:37 11/05/23 06:35 90 L 11/05/23 01:35 91 L 11/04/23 20:00 91 L 11/04/23 17:10 96 11/04/23 15:00 96 Intake and Output 11/04/23 11/05/23 11/05/23 22:59 06:59 14:59 Output Total 200 900 Balance -200 -900 Output: Urine 200 900 Other: Voiding Method Indwelling Catheter PHYSICAL EXAM: VITAL SIGNS: [As above] GENERAL: Alert and oriented x 3, morbid obese, sitting up in bed,NAD, conversing without dyspnea HEENT: Atraumatic conjunctivae normal. eyes normal. NECK: Supple no JVD. No thyroid enlargement. No LNs CARDIOVASCULAR: S1, S2 regular.. No murmur RESPIRATION: Unlabored, equal air entry, scattered expiratory wheezing with fine bibasilar crackles. ABDOMEN: Soft, obese, nontender . No guarding. no masses palpable. Positive bowel sounds LEGS: No edema. no swelling NERVOUS SYSTEM: Cranial N 2-12 grossly normal. Moves all 4 limbs. No focal deficits. Strength and sensation grossly intact. Skin: Warm and dry, no rash Results CBC & Chem 7: 11/05/23 05:49 11/05/23 05:49 Labs: Abnormal Lab Results - Last 24 Hours (Table) 11/05/23 11/05/23 11/05/23 Range/Units 05:49 05:49 06:26 RBC 3.88 L (4.40-5.60) X 10*6/uL Hgb 12.0 L (13.0-17.0) g/dL Hct 37.5 L (39.6-50.0) % Neutrophils # 8.05 H (1.80-7.70) X 10*3/uL Lymphocytes # 0.77 L (0.90-5.00) X 10*3/uL Eosinophils # 0 L (0.04-0.35) X 10*3/uL Anion Gap 13.00 H (4.00-12.00) mmol/L BUN 28.8 H (9.0-27.0) mg/dL Est GFR (CKD-EPI) 51 L (>=60) BUN/Creatinine Ratio 20.57 H (12.00-20.00) Ratio Glucose 132 H (70-110) mg/dL POC Glucose (mg/dL) 147 H (70-110) mg/dL Assessment and Plan Assessment: Status post Stage I: L2-L3 lateral fusion, stage II: L2-L3 posterior stabilization secondary to L2-3 spondylolysis, spondylosis, bilateral lower extremity radiculopathy and weakness, low back pain. Acute hypoxic respiratory failure possibly secondary to mild fluid overload related to procedure Morbid obesity, BMI 36 CAD history of MN and CABG Osteoarthritis Nicotine dependence, smoked x 15 years, quit 30 to 35 years ago Prostate disorder Plan: Continue on current medication regime, monitoring and symptomatic treatm ent. Blood pressure soft, holding Norvasc and DENISE inhibitor at this time. Close monitoring of blood pressures and will resume accordingly. aggressive pulmonary toileting with incentive spirometer reinforced, nebulized bronchodilators. Mildly elevated blood sugars this morning, NovoLog insulin sli ding scale ordered with hemoglobin A1c ordered. Pain management and DVT prophylaxis as per primary. PT pending. Pulmonary consult recommended if unable to wean O2. The impression and plan of care has been dictated as directed. : I performed a history and examination of this patient, discussed the same with the dictator. I agree with the dictator's note ,documented as a scribe. Any ad ditional findings or plans will be noted.
[2023-11-05] MEDS: SIMETHICONE 80 MG CHEWABLE PO SCH (16:54)
[2023-11-05] MEDS: VIT A,C & E-LUTEIN-MINERALS 1 EACH TAB PO SCH (17:06)
[2023-11-05 17:22] LABS: Glucose,Whole Blood 150 mg/dL (70-110)
[2023-11-05] MEDS: INSULIN ASPART (NovoLOG) 100 UNIT/ML VIAL SQ SCH (17:24)
--- NOTE | 2023-11-05 17:40 | CT ---
EXAMINATION TYPE: CT lumbar spine wo con CT DLP: 1861.6 mGycm, Automated exposure control for dose reduction was used. DATE OF EXAM: 11/05/2023 9:00 AM COMPARISON: 07/15/2023. CLINICAL INDICATION:Male, 78 years old with history of s/p L2-L3 lateral interbody fusion; L2-4 decom pr f; PHH, s/p L2-L3 lateral interbody fusion; L2-4 decomp TECHNIQUE: Multiple axial images were obtained from the midportion of T11 through the sacroiliac coleen nts. Soft tissue and bone windows in coronal and sagittal planes were obtained and reviewed. 3-D ref ormats of the bones were created on a separate workstation and submitted for review. Contrast used: (None, if empty). Oral contrast used: (None, if empty). FINDINGS: Postsurgical changes to the lumbar spine with fixation hardware at L2-L4 . Discectomy at L2-L3. Hardw are limits evaluation at these levels. Hardware appears intact. No evidence of fracture. Postsurgical changes in the soft tissues with foci of gas present. Drainage catheter with tubing in t he surgical bed. Posterior back skin romaine are present. Atherosclerosis of the arterial vasculature. Curvilinear lesions in the surgical bed on the left seri es 201 image 55 and image 58. On sagittal imaging series 205 image 54 and 23. Nonobstructing left gregory al calculi. The gallbladder surgically absent. Atelectasis in the lung bases. IMPRESSION: 1. Postsurgical changes without evidence of immediate post operative complication. 2. Bilateral curvilinear objects are seen in the surgical bed there is a flattened morphology. Corre late with surgical report.
--- NOTE | 2023-11-05 18:04 | XR ---
EXAMINATION TYPE: XR chest 1V portable DATE OF EXAM: 11/05/2023 Comparison: 11/04/2023 Clinical History: 78-year-old male Check for aspiration Findings: Sternotomy wires and post-CABG clips. Heart borderline enlarged. Mild increased interstitial density is similar. This may be slightly increasing in the retrocardiac region and right infrahilar region. N o pleural effusion Impression: Patchy retrocardiac opacity and medial right basilar opacity slightly increasing. Follow-up to exclud e worsening infiltrates.
[2023-11-05 20:06] LABS: Glucose,Whole Blood 188 mg/dL (70-110)
--- NOTE | 2023-11-06 04:20 | P.CNPUL ---
History of Present Illness Consult date: 11/06/23 Requesting physician: Mendy Forrester Reason for consult: other (Possible aspiration) Chief complaint: Possible aspiration History of present illness: I am seeing this patient in new consultation today 11/08/2023 for concerns of possible aspiration. Patient is currently postoperative day #2 following a two- stage surgery including L2-L3 lateral fusion followed by a L2-L3 posterior stabilization. Patient is a 78-year-old white male with past medical history significant for coronary artery disease and previous RI, coronary artery bypass grafting, hyperlipidemia, hypertension, GERD, and chronic back pain. Patient was brought in on 11/04/2023 for an elective two-stage revision including a L2- L3 lateral interbody fusion followed by L2-L3 posterior stabilization and fusion. Postoperatively, early in the morning on 11/05/2023, an a team was called for increased respiratory distress. Chest x-ray at that time demonstrated diffuse reticular nodular interstitial changes with equalization of pulmonary vasculature. Favoring pulmonary vascular congestion over interstitial infection. No focal airspace consolidation was appreciated. Patient was given a dose of Lasix. He is currently sitting up in bed, on 2 L/min nasal cannula. He states that he choked on a piece of beef. He has a productive cough with what appears to be food products. [facility] shows a increased patchy retrocardiac opacity and medial right basilar opacity. He had a low-grade temperature of 99.7 F earlier. Most recent CBC from yesterday unremarkable. No leukocytosis. Most recent BMP from yesterday also fairly unremarkable. Incentives from her is at bedside. Vital signs are stable. Review of Systems REVIEW OF SYSTEMS: CONSTITUTIONAL: Denies any recent significant weight loss or weight gain. EYES: Denies change in vision. EARS, NOSE, MOUTH, THROAT: Denies headaches. Admits sore throat that started after possible aspiration event CARDIOVASCULAR: Denies chest pain, palpitations or syncopal episodes. RESPIRATORY: Admits shortness of breath associated cough with food products. Denies any hemoptysis. GASTROINTESTINAL: Denies change in appetite, abdominal pain, nausea and vomiting, or diarrhea GENITOURINARY: Denies hematuria, denies infections. MUSKULOSKELETAL: Admits postsurgical lumbar pain. INTEGUMENTARY: Denies rash, denies eczema. NEUROLOGICAL: Denies recent memory loss, no recent seizure activity. PSYCHIATRIC: Denies anxiety, denies depression. HEMATOLOGIC/LYMPHATIC: Denies anemia, denies enlarged lymph node Past Medical History Past Medical History: Coronary Artery Disease (CAD), GERD/Reflux, Hyperlipidemia, Hypertension, Myocardial Infarction (RI), Osteoarthritis (OA), Prostate Disorder Additional Past Medical History / Comment(s): trigeminal neuralgia Last Myocardial Infarction Date:: unk History of Any Multi-Drug Resistant Organisms: MRSA Date of last positivie culture/infection: 06/06/23 MDRO Source:: Cutaneous abscess Past Surgical History: Back Surgery, Cholecystectomy, Coronary Bypass/CABG, Heart Catheterization With Stent, Orthopedic Surgery Additional Past Surgical History / Comment(s): neck surgery & lumbar fusion,. right ankle surgery. 4 vessel bypass >10 yrs. ago in [place] Past Anesthesia/Blood Transfusion Reactions: No Reported Reaction Date of Last Stent Placement:: unk Smoking Status: Former smoker - Past Family History Mother Family Medical History: Cancer Additional Family Medical History / Comment(s): colon and stomach Medications and Allergies Home Medications Medication Instructions Recorded Confirmed Type Aspirin [Adult Low Dose Aspirin EC] 81 mg PO DAILY 10/31/22 10/29/23 History Omeprazole 20 mg PO DAILY 10/31/22 10/29/23 History Simvastatin 40 mg PO HS 10/31/22 10/29/23 History amLODIPine [Norvasc] 2.5 mg PO DAILY 10/31/22 10/29/23 History carBAMazepine 200 mg PO BID 10/31/22 10/29/23 History lisinopriL [Zestril] 20 mg PO DAILY 10/31/22 10/29/23 History tiZANidine [Zanaflex] 4 mg PO HS 10/31/22 10/29/23 History Cholecalciferol (Vitamin D3) 50 mcg PO MO 10/29/23 10/29/23 History [Vitamin D3 (50 Mcg = 2000 Iu)] Citalopram Hydrobromide [CeleXA] 40 mg PO DAILY 10/29/23 10/29/23 History Cyclobenzaprine [Flexeril] 10 mg PO HS 10/29/23 10/29/23 History Metoprolol Succinate (ER) [Toprol 100 mg PO DAILY 10/29/23 10/29/23 History Xl] Tamsulosin [Flomax] 0.4 mg PO DAILY 10/29/23 10/29/23 History Vit C/E/Zn/Coppr/Lutein/Zeaxan 1 each PO DAILY 10/29/23 10/29/23 History [Preservision Areds 2 Softgel] Allergies Allergy/AdvReac Type Severity Reaction Status Date / Time No Known Allergies Allergy Verified 10/29/23 09:48 Physical Exam Vitals: Vital Signs Temp Pulse Pulse Resp BP Pulse Ox 11/06/23 03:32 89 11/06/23 02:01 98.2 F 89 20 103/50 91 L 11/06/23 00:01 98 11/05/23 23:54 96 11/05/23 21:21 96 11/05/23 21:07 100 11/05/23 19:18 99.7 F H 101 H 20 154/73 92 L 11/05/23 17:25 15 91 L 11/05/23 15:12 80 11/05/23 15:00 80 11/05/23 14:42 98.2 F 78 17 136/63 96 11/05/23 13:00 20 11/05/23 12:20 98.8 F 84 20 94/64 94 L 11/05/23 11:33 92 11/05/23 11:23 88 11/05/23 10:26 99 11/05/23 08:00 111 H 20 11/05/23 07:32 99.1 F 111 H 27 H 102/64 92 L 11/05/23 06:49 106 H 11/05/23 06:41 91 L 11/05/23 06:37 105 H 11/05/23 06:35 111 H 24 116/66 90 L Intake and Output 11/05/23 11/05/23 11/06/23 14:59 22:59 06:59 Other: Voiding Method Indwelling Catheter GENERAL EXAM: Alert, 78-year-old white male, fairly comfortable in no apparent distress. He does have a harsh productive cough. Laced with what appears to be brown food product. HEAD: Normocephalic and atraumatic EYES: Normal reaction of pupils, equal size. NOSE: Clear with pink turbinates. THROAT: No erythema or exudates. NECK: No masses, no JVD. CHEST: No chest wall deformity. LUNGS: Equal air entry with diffuse coarse rhonchi bilaterally. On 2 L/min nasal cannula. No conversational dyspnea or accessory muscle use.. CVS: S1 and S2 normal with no audible murmur, regular rhythm. No extra heart sounds ABDOMEN: No hepatosplenomegaly, active bowel sounds, no guarding or rigidity. SPINE: No scoliosis or deformity SKIN: No rashes CENTRAL NERVOUS SYSTEM: No focal deficits, tone is normal in all 4 extremities. Bilateral upper extremity strength 5/5. Bilateral lower extremity strength 5/5. Sensation intact. Patellar DTRs 2+ bilaterally. Denies saddle anesthesia. Denies bowel incontinence. Has Avila catheter. EXTREMITIES: There is no peripheral edema, clubbing, or cyanosis. Peripheral pulses are intact. Results - Laboratory Findings CBC and BMP: 11/05/23 05:49 11/05/23 05:49 Abnormal lab findings: Abnormal Labs 11/05/23 11/05/23 11/05/23 05:49 05:49 06:26 RBC 3.88 L Hgb 12.0 L Hct 37.5 L Neutrophils # 8.05 H Lymphocytes # 0.77 L Eosinophils # 0 L Anion Gap 13.00 H BUN 28.8 H Est GFR (CKD-EPI) 51 L BUN/Creatinine Ratio 20.57 H Glucose 132 H POC Glucose (mg/dL) 147 H 11/05/23 11/05/23 17:21 20:04 RBC Hgb Hct Neutrophils # Lymphocytes # Eosinophils # Anion Gap BUN Est GFR (CKD-EPI) BUN/Creatinine Ratio Glucose POC Glucose (mg/dL) 150 H 188 H - Diagnostic Findings Chest x-ray: image reviewed Assessment and Plan Assessment: Acute hypoxemic respiratory failure, possibly secondary to aspiration pneumonitis. Most recent chest x-ray demonstrates increasing retrocardiac opacity and medial right basilar opacity. Patient reports that he choked on a piece of beef earlier. L2-L3 spondylolisthesis and spondylosis with stenosis status postoperative day #2 following an elective two-stage revision including a L2-L3 lateral interbody fusion followed by L2-L3 posterior stabilization and fusion. History of coronary artery disease with previous RI and CABG History of hyperlipidemia History of hypertension History of GERD without esophagitis Former tobacco smoker Plan: Patient's medications, labs, chest x-ray reviewed Continue supplemental oxygen to maintain oxygen saturation 92% or greater Add empiric Zosyn for possible aspiration Check procalcitonin level Obtain swallow evaluation. Patient denies any chronic dysphagia. Encourage incentive spirometer and pulmonary toileting Repeat chest x-ray in the morning No other perioperative complications reported. Postoperative pain control appears well-managed with current analgesic regimen. Activity level and pharmacological DVT prophylaxis per surgery. Protonix for GI prophylaxis. We will continue to follow I have personally seen and examined the patient, performed the documentation and the assessment and plan as written. Number of minutes spent on the visit:20 Time with Patient: Greater than 30
[2023-11-06] MEDS: PIPERACILLIN-TAZOBACTAM 3.375 GM in SODIUM CHLORIDE 0.9% 100 ML IVPB SCH (06:02)
[2023-11-06 06:09] LABS: Glucose,Whole Blood 154 mg/dL (70-110)
--- NOTE | 2023-11-06 08:46 | XR ---
EXAMINATION TYPE: XR chest 1V portable DATE OF EXAM: 11/06/2023 Comparison: 11/05/2023 Clinical History: 78-year-old male shortness of breath, possible aspiration Findings: Median sternotomy wires and post-CABG clips. Interstitial density is similar. Aeration of the right b ase slightly improved. Patchy retrocardiac opacity remains. No pleural effusion. Impression: Similar mild interstitial density. Patchy retrocardiac opacity remains. Aeration at the medial right base shows improvement.
--- NOTE | 2023-11-06 09:00 | P.PN ---
Subjective Progress Note Date: 11/06/23 Principal diagnosis: 1. Grade I spondylolisthesis of L2 on L3 2. L2-3 spondylosis with stenosis, severe 3. Bilateral lower extremity radiculopathy 4. Bilateral lower extremity weakness 5. Low back pain Patient seen and examined this morning. Patient is resting comfortably in bed. Patient has significant improvement in respiratory status, currently on 2 L O2. Patient was evaluated by pulmonology and started on empiric treatment of Zosyn. Patient reports his pain is managed on current regimen. Surgical dressings are intact. Continue to encourage patient to use incentive spirometer while awake. Patient to continue working with physical therapy. No acute concerns at this time. Objective - Vital Signs Vital signs: Vital Signs Temp 98.8 F 11/06/23 07:40 Pulse 95 11/06/23 08:39 Resp 18 11/06/23 07:40 BP 110/59 11/06/23 07:40 Pulse Ox 94 L 11/06/23 08:42 FiO2 Intake & Output 11/05/23 11/06/23 11/06/23 18:59 06:59 18:59 Output Total 850 Balance -850 Output: Urine 850 Other: Voiding Method Indwelling Catheter - Exam Physical Examination General: The patient is awake and alert, mild to moderate distress due to respiratory congestion Skin: Skin is warm and dry with no obvious rashes or lesions. Surgical i ncisions to the left lateral abdomen and paralumbar spine, dressings are intact with shadowing noted. Dressings intact. Eye: Pupils are equal, round and reactive to light, extra-ocular movements are intact; there is normal conjunctiva bilaterally. Neck: The neck is supple, there is no tenderness and ROM intact. Cardiovascular: There is a regular rate and rhythm. No murmur, rub or gallop is appreciated. Respiratory: Respirations unlabored, mild atelectasis. Gastrointestinal: Soft, non-distended, non-tender abdomen. Back: There is no tenderness to palpation in the midline, paralumbar, parathoracic or buttocks region. There is no obvious deformity . Musculoskeletal: ROM limited secondary to pain and stiffness from surgical procedure. Muscle strength in all major muscle groups of bilateral upper extremities 5/5, bilateral lower extremities 4/5. Neurological: CN 2-12 intact. There are no obvious motor or sensory deficits. Movement and coordination equal and intact. Sensory exam to light touch intact C5-T1 and intact from L2-S1. Reflexes 2/4 in bilateral upper and lower ext remities. Negative Hoffmans, babinski, and clonus signs. Psychiatric: Cooperative, appropriate mood & affect, normal judgment. - Labs CBC & Chem 7: 11/05/23 05:49 11/05/23 05:49 Labs: Abnormal Lab Results - Last 24 Hours (Table) 11/05/23 11/05/23 11/05/23 Range/Units 05:49 05:49 17:21 RBC 3.88 L (4.40-5.60) X 10*6/uL Hgb 12.0 L (13.0-17.0) g/dL Hct 37.5 L (39.6-50.0) % Neutrophils # 8.05 H (1.80-7.70) X 10*3/uL Lymphocytes # 0.77 L (0.90-5.00) X 10*3/uL Eosinophils # 0 L (0.04-0.35) X 10*3/uL Anion Gap 13.00 H (4.00-12.00) mmol/L BUN 28.8 H (9.0-27.0) mg/dL Est GFR (CKD-EPI) 51 L (>=60) BUN/Creatinine Ratio 20.57 H (12.00-20.00) Ratio Glucose 132 H (70-110) mg/dL POC Glucose (mg/dL) 150 H (70-110) mg/dL 11/05/23 11/06/23 Range/Units 20:04 06:05 RBC (4.40-5.60) X 10*6/uL Hgb (13.0-17.0) g/dL Hct (39.6-50.0) % Neutrophils # (1.80-7.70) X 10*3/uL Lymphocytes # (0.90-5.00) X 10*3/uL Eosinophils # (0.04-0.35) X 10*3/uL Anion Gap (4.00-12.00) mmol/L BUN (9.0-27.0) mg/dL Est GFR (CKD-EPI) (>=60) BUN/Creatinine Ratio (12.00-20.00) Ratio Glucose (70-110) mg/dL POC Glucose (mg/dL) 188 H 154 H (70-110) mg/dL Assessment and Plan Assessment: Postop day 2: Stage I: L2-L3 lateral fusion, stage II: L2-L3 posterior stabilization 1. Grade I spondylolisthesis of L2 on L3 2. L2-3 spondylosis with stenosis, severe 3. Bilateral lower extremity radiculopathy 4. Bilateral lower extremity weakness 5. Low back pain Plan: -Appreciate wealth management consultant and team management. -Activity: Ambulate QID, OOB all meals, up and about, limit lifting bending twisting to less than 5 lbs. Use walker or cane if needed for stability. -Daily PT/OT, increase ambulation strength and balance. -Pain control: Adequate at this time -Meds: reviewed -GI ppx: senna, Miralax -DC yin when up and about, bedside commode if needed -DVT PPX: Eliquis -Hygiene: Shower today. Maintain dressing clean and dry. Meticulous cleaning after BMs away from the incision site -Encourage IS 10x/hr -Dispo: Clinically pending *I reviewed and discussed this case with my attending Dr. Chiu, whom has reviewed this chart and films and is in agreement with assessment and plan of care as outlined above. I have personally seen and examined the patient, performed the documentation and the assessment and plan as written. Number of minutes spent on the visit: 20m
[2023-11-06 11:19] LABS: HCT 29.4 % (39.6-50.0); HGB 9.6 g/dL (13.0-17.0); MCH 31.2 pg (27.0-32.0); MCHC 32.7 g/dL (32.0-37.0); MCV 95.5 FL (80.0-97.0); NRBC Per 100 WBC 0 X 10*3/uL (0.00-0.01); Platelet Count 145 X 10*3/uL (140-440); RBC 3.08 X 10*6/uL (4.40-5.60); RDW 13.2 % (11.5-14.5); WBC 8.28 X 10*3/uL (4.50-10.00)
[2023-11-06 11:22] LABS: BUN/Creat Ratio 24.16 Ratio (12.00-20.00); Blood Urea Nitrogen 45.9 mg/dL (9.0-27.0); Calcium 8.8 mg/dL (8.7-10.3); Carbon Dioxide 24.6 mmol/L (21.6-31.8); Chloride 97 mmol/L (96-109); Glucose 137 mg/dL (70-110); Potassium 4.4 mmol/L (3.5-5.5); Sodium 133 mmol/L (135-145)
[2023-11-06 11:45] LABS: Basophils # (A) 0.04 X 10*3/uL (0.00-0.10); Basophils % (A) 0.5 %; Eosinophils # (A) 0.09 X 10*3/uL (0.04-0.35); Eosinophils % (A) 1.1 %; Lymphocytes % (A) 12.1 %; Monocytes # (A) 0.64 X 10*3/uL (0.20-1.00); Monocytes % (A) 7.7 %; Neutrophils # (A) 6.49 X 10*3/uL (1.80-7.70); Neutrophils % (A) 78.4 %; RBC Morphology Normal (Normal)
[2023-11-06 11:50] LABS: Glucose,Whole Blood 202 mg/dL (70-110)
[2023-11-06 16:37] LABS: Glucose,Whole Blood 179 mg/dL (70-110)
--- NOTE | 2023-11-06 16:53 | P.PN ---
Subjective Progress Note Date: 11/06/23 - History of Present Illness 11/05/2023 This is an 78-year-old gentleman with past medical history significant for morbid obesity, prior nicotine dependence for 15 years-quit smoking 30 to 35 years ago, occasional alcohol consumption, CAD, AR, CABG, negative dobutamine stress test October 31, 2023 reports inconclusive EKG prior to stress due to baseline EKG abnormalities,Echo 05/21/2023 reported normal LV size and systolic function with borderline concentric LVH, no pulmonary hypert ension,gastroesophageal reflux disease, hypertension, osteoarthritis, prostate disorder, trigeminal neuralgia, prior neck surgery and lumbar fusion and multiple other medical issues status post stage I: L2-L3 lateral fusion, stage II L2-L3 posterior stabilization. Earlier this morning, woke up shortness of breath, congested, wheezing, spitting up phlegm, hypoxic-requiring 5 L nasal cannula to maintain O2 sat of 91%, a team called. Lasix and nebulized bronchodilators ordered.chest x-ray at midnight reported diffuse reticulonodular interstitial changes with equalization of the pulm vascular. Incentive spirometer up to 1999. Denies passing flatus.Norvasc and DENISE inhibitor placed on hold, blood pressure soft. Reports positive pain. Denies numbness or tingling of extremities. denies chest pain, palpitations. Afebrile, Tmax 99.1, normal WBC. Hemoglobin 12, platelets 187. BUN 28.8 creatinine 1.4. Early a.m. blood sugars 130s to 140s, sliding scale and hemoglobin A1c ordered NovoLog sliding scale and hemoglobin A1c ordered. 11/06/2023 last night during dinner, choked on a piece of meat, possible aspiration and empiric Zosyn initiated. Patient denies chronic dysphagia. Patient developed further respiratory distress, O2 bumped up to 6 L, currently down to 3L.Chest x-ray last night reported patchy retrocardiac opacity and medial right basilar opacity slightly increasing. Speech therapy consulted for swallow evaluation. Afebrile, Tmax 99.7, normal WBC. Hemoglobin decreased to 9.6. Received Lasix yesterday .Renal function worsening, bicarb 24.6, BUN 45.9, creatinine 1.9. Blood sugars controlled. Hemoglobin A1c 5.9. PT reporting poor balance, decreased strength and endurance, ambulation fair, minimal to moderate assist. Objective - Vital Signs Vital signs: Vital Signs Temp 99.1 F 11/06/23 13:53 Pulse 105 H 11/06/23 16:04 Resp 16 11/06/23 13:53 BP 138/66 11/06/23 13:53 Pulse Ox 93 L 11/06/23 13:53 FiO2 Intake & Output 11/05/23 11/06/23 11/06/23 18:59 06:59 18:59 Output Total 850 Balance -850 Output: Urine 850 Other: Voiding Method Indwelling Catheter Indwelling Catheter - Exam PHYSICAL EXAM: VITAL SIGNS: [As above] GENERAL: Alert and oriented x 3, morbid obese, sitting up in bed,NAD, conversing without dyspnea HEENT: Atraumatic conjunctivae normal. eyes normal. NECK: Supple no JVD. No thyroid enlargement. No LNs CARDIOVASCULAR: S1, S2 regular.. No murmur RESPIRATION: Unlabored, equal air entry, scattered rhonchi, bilateral bases diminished ABDOMEN: Soft, obese, nontender . No guarding. no masses palpable. Positive bowel sounds LEGS: No edema. no swelling NERVOUS SYSTEM: Cranial N 2-12 grossly normal. Moves all 4 limbs. No focal deficits. Strength and sensation grossly intact. Skin: Warm and dry, no rash - Labs CBC & Chem 7: 11/06/23 06:15 11/06/23 06:15 Labs: Abnormal Lab Results - Last 24 Hours (Table) 11/05/23 11/05/23 11/06/23 Range/Units 17:21 20:04 06:05 RBC (4.40-5.60) X 10*6/uL Hgb (13.0-17.0) g/dL Hct (39.6-50.0) % Sodium (135-145) mmol/L BUN (9.0-27.0) mg/dL Creatinine (0.6-1.5) mg/dL Est GFR (CKD-EPI) (>=60) BUN/Creatinine Ratio (12.00-20.00) Ratio Glucose (70-110) mg/dL POC Glucose (mg/dL) 150 H 188 H 154 H (70-110) mg/dL 11/06/23 11/06/23 11/06/23 Range/Units 06:15 06:15 11:46 RBC 3.08 L (4.40-5.60) X 10*6/uL Hgb 9.6 L (13.0-17.0) g/dL Hct 29.4 L (39.6-50.0) % Sodium 133 L (135-145) mmol/L BUN 45.9 H (9.0-27.0) mg/dL Creatinine 1.9 H (0.6-1.5) mg/dL Est GFR (CKD-EPI) 35 L (>=60) BUN/Creatinine Ratio 24.16 H (12.00-20.00) Ratio Glucose 137 H (70-110) mg/dL POC Glucose (mg/dL) 202 H (70-110) mg/dL Assessment and Plan Assessment: Status post Stage I: L2-L3 lateral fusion, stage II: L2-L3 posterior stabilization secondary to L2-3 spondylolysis, spondylosis, bilateral lower extremity radiculopathy and weakness, low back pain. Possible aspiration pneumonitis, patient choked on meat at dinner, swallow evaluation pending Acute hypoxic respiratory failure possibly secondary to mild fluid overload related to procedure and possibly aspiration Acute on chronic CKD, stage III Morbid obesity, BMI 36 CAD history of AR and CABG Osteoarthritis Nicotine dependence, smoked x 15 years, quit 30 to 35 years ago Prostate disorder Hemoglobin A1c 5.9 Plan: Continue on current medication regime, monitoring and symptomatic treatment. Empiric Zosyn for possible aspiration. Swallow evaluation pending. renal function worsened, blood pressure soft, holding Norvasc and DENISE inhibitor at this time. Nephrology consulted. Close monitoring of renal function, hemoglobin with repeat labs ordered for A.M.Aggressive pulmonary toileting with incentive spirometer reinforced, nebulized bronchodilators. Pain management and DVT prophylaxis as per primary. PT. Patient would definitely benefit from possibly inpatient or subacute rehab. The impression and plan of care has been dictated as directed. : I performed a history and examination of this patient, discussed the same with the dictator. I agree with the dictator's note ,documented as a scribe. Any additional findings or plans will be noted.
[2023-11-06] MEDS: HYDROcodone/APAP 5-325MG 1 EACH TAB PO PRN (20:20)
[2023-11-06 21:19] LABS: Glucose,Whole Blood 175 mg/dL (70-110)
[2023-11-07 06:07] LABS: Glucose,Whole Blood 143 mg/dL (70-110)
[2023-11-07 07:02] LABS: HCT 30.5 % (39.0-53.0); HGB 10.2 gm/dL (13.0-17.5); MCH 32.4 pg (25.0-35.0); MCHC 33.3 g/dL (31.0-37.0); MCV 97.3 fL (80.0-100.0); Mean Platelet Volume 8.3; Platelet Count 143 k/uL (150-450); RBC 3.14 m/uL (4.30-5.90); RDW 12.9 % (11.5-15.5); WBC 7.3 k/uL (3.8-10.6)
--- NOTE | 2023-11-07 07:55 | P.PN ---
Subjective Progress Note Date: 11/07/23 Principal diagnosis: 1. Grade I spondylolisthesis of L2 on L3 2. L2-3 spondylosis with stenosis, severe 3. Bilateral lower extremity radiculopathy 4. Bilateral lower extremity weakness 5. Low back pain Patient seen and examined this morning. Patient was transferring to chair at bedside, 1 standby assist. Patient tolerated activity well. He reports he is feeling better today, although he feels fatigued. Surgical incisions to the paralumbar spine, well approximated with romaine intact. New dressings have been applied. Surgical incision to the left lateral flank region, dressing is clean dry and intact. Patient is progressing well with his activity. Patient has been afebrile and denies chest pain. Patient remains on 4 L nasal cannula, he demonstrates a productive cough. Continue to encourage incentive spirometer. Patient is cleared from orthopedic standpoint for discharge when medically stable. Objective - Vital Signs Vital signs: Vital Signs Temp 97.4 F L 11/07/23 01:34 Pulse 97 11/07/23 04:10 Resp 19 11/07/23 01:34 BP 116/63 11/07/23 01:34 Pulse Ox 98 11/07/23 01:34 FiO2 Intake & Output 11/06/23 11/07/23 11/07/23 18:59 06:59 18:59 Intake Total 237 Output Total 1050 Balance -813 Intake: Oral 237 Output: Urine 1050 Other: Voiding Method Indwelling Catheter Indwelling Catheter - Exam Physical Examination General: The patient is awake and alert, mild to moderate distress due to r espiratory congestion Skin: Skin is warm and dry with no obvious rashes or lesions. Surgical inci sions to the left lateral abdomen, dressing is clean dry and intact. Surgical incisions at her lumbar spine, edges are well approximated with romaine intact. Scant amount of sanguinous drainage noted. New dressings applied. Eye: Pupils are equal, round and reactive to light, extra-ocular movements are intact; there is normal conjunctiva bilaterally. Neck: The neck is supple, there is no tenderness and ROM intact. Cardiovascular: There is a regular rate and rhythm. No murmur, rub or gallop is appreciated. Respiratory: Respirations unlabored, productive cough Gastrointestinal: Soft, non-distended, non-tender abdomen. Back: There is no tenderness to palpation in the midline, paralumbar, parathoracic or buttocks region. There is no obvious deformity . Musculoskeletal: ROM limited secondary to pain and stiffness from surgical procedure. Muscle strength in all major muscle groups of bilateral upper extremities 5/5, bilateral lower extremities 4/5. Neurological: CN 2-12 intact. There are no obvious motor or sensory deficits. Movement and coordination equal and intact. Sensory exam to light touch intact C5-T1 and intact from L2-S1. Reflexes 2/4 in bilateral upper and lower extremities. Negative Hoffmans, babinski, and clonus signs. Psychiatric: Cooperative, appropriate mood & affect, normal judgment. - Labs CBC & Chem 7: 11/07/23 06:37 11/06/23 06:15 Labs: Abnormal Lab Results - Last 24 Hours (Table) 11/06/23 11/06/23 11/06/23 Range/Units 06:15 06:15 11:46 RBC 3.08 L (4.40-5.60) X 10*6/uL Hgb 9.6 L (13.0-17.0) g/dL Hct 29.4 L (39.6-50.0) % Plt Count (150-450) k/uL Sodium 133 L (135-145) mmol/L BUN 45.9 H (9.0-27.0) mg/dL Creatinine 1.9 H (0.6-1.5) mg/dL Est GFR (CKD-EPI) 35 L (>=60) BUN/Creatinine Ratio 24.16 H (12.00-20.00) Ratio Glucose 137 H (70-110) mg/dL POC Glucose (mg/dL) 202 H (70-110) mg/dL 11/06/23 11/06/23 11/07/23 Range/Units 16:35 21:18 06:03 RBC (4.40-5.60) X 10*6/uL Hgb (13.0-17.0) g/dL Hct (39.6-50.0) % Plt Count (150-450) k/uL Sodium (135-145) mmol/L BUN (9.0-27.0) mg/dL Creatinine (0.6-1.5) mg/dL Est GFR (CKD-EPI) (>=60) BUN/Creatinine Ratio (12.00-20.00) Ratio Glucose (70-110) mg/dL POC Glucose (mg/dL) 179 H 175 H 143 H (70-110) mg/dL 11/07/23 Range/Units 06:37 RBC 3.14 L (4.40-5.60) X 10*6/uL Hgb 10.2 L (13.0-17.0) g/dL Hct 30.5 L (39.6-50.0) % Plt Count 143 L (150-450) k/uL Sodium (135-145) mmol/L BUN (9.0-27.0) mg/dL Creatinine (0.6-1.5) mg/dL Est GFR (CKD-EPI) (>=60) BUN/Creatinine Ratio (12.00-20.00) Ratio Glucose (70-110) mg/dL POC Glucose (mg/dL) (70-110) mg/dL Assessment and Plan Assessment: Postop day 3: Stage I: L2-L3 lateral fusion, stage II: L2-L3 posterior stabilization 1. Grade I spondylolisthesis of L2 on L3 2. L2-3 spondylosis with stenosis, severe 3. Bilateral lower extremity radiculopathy 4. Bilateral lower extremity weakness 5. Low back pain Plan: -Appreciate exchange consultant and team management. -Activity: Ambulate QID, OOB all meals, up and about, limit lifting bending twisting to less than 5 lbs. Use walker or cane if needed for stability. -Daily PT/OT, increase ambulation strength and balance. -Pain control: Adequate at this time -Meds: reviewed -GI ppx: senna, Miralax -YVES yin per medicine and nephrology. -DVT PPX: Eliquis -Hygiene: Shower today. Maintain dressing clean and dry. Meticulous cleaning after BMs away from the incision site -Encourage IS 10x/hr -Dispo: Patient is cleared from orthopedic standpoint for discharge when medically stable. *I reviewed and discussed this case with my attending Dr. Chiu, whom has reviewed this chart and films and is in agreement with assessment and plan of care as outlined above. I have personally seen and examined the patient, performed the documentation and the assessment and plan as written. Number of minutes spent on the visit: 20m
[2023-11-07] MEDS: polyethylene glycoL 3350 17 GM POWD.PACK PO SCH (09:46)
[2023-11-07 11:53] LABS: BUN/Creat Ratio 26.92 Ratio (12.00-20.00); Carbon Dioxide 27.9 mmol/L (21.6-31.8); Chloride 98 mmol/L (96-109); Glucose 135 mg/dL (70-110); Potassium 5.1 mmol/L (3.5-5.5); Sodium 135 mmol/L (135-145)
[2023-11-07 11:58] LABS: Glucose,Whole Blood 138 mg/dL (70-110)
--- NOTE | 2023-11-07 12:00 | P.PN ---
Subjective Progress Note Date: 11/07/23 I am seeing this patient in new consultation today 11/08/2023 for concerns of possible aspiration. Patient is currently postoperative day #2 following a two- stage surgery including L2-L3 lateral fusion followed by a L2-L3 posterior stabilization. Patient is a 78-year-old white male with past medical history significant for coronary artery disease and previous NC, coronary artery bypass grafting, hyperlipidemia, hypertension, GERD, and chronic back pain. Patient was brought in on 11/04/2023 for an elective two-stage revision including a L2- L3 lateral interbody fusion followed by L2-L3 posterior stabilization and fusion. Postoperatively, early in the morning on 11/05/2023, an a team was called for increased respiratory distress. Chest x-ray at that time demonstrated diffuse reticular nodular interstitial changes with equalization of pulmonary vasculature. Favoring pulmonary vascular congestion over interstitial infection. No focal airspace consolidation was appreciated. Patient was given a dose of Lasix. He is currently sitting up in bed, on 2 L/min nasal cannula. He states that he choked on a piece of beef. He has a productive cough with what appears to be food products. A follow-up chest x-ray done yesterday evening shows a increased patchy retrocardiac opacity and medial right basilar opacity. He had a low-grade temperature of 99.7 F earlier. Most recent CBC from yesterday unremarkable. No leukocytosis. Most recent BMP from yesterday also fairly unremarkable. Incentives from her is at bedside. Vital signs are stable. The patient is seen today November 07, 2023 in follow-up on the regular medical floor. He is currently resting comfortably in bed. Awake and alert in no acute distress. He is maintaining O2 saturations in the 90s on 4 L/min per nasal cannula. He has normal saline at time mL per hour. No further choking or aspiration episodes. White count 7.3. Hemoglobin 10.4. Platelets 143. Sodium 135. Potassium 5.1. Bicarb 28. BUN 35. Creatinine 1.3. Glucose 135. Chest x-ray showed patchy retrocardiac opacities. Improved aeration in the right base. He remains on DuoNeb inhalations, antibiotics in the form of Zosyn. Objective - Vital Signs Vital signs: Vital Signs Temp 98.7 F 11/07/23 06:55 Pulse 92 11/07/23 11:45 Resp 18 11/07/23 06:55 BP 125/67 11/07/23 06:55 Pulse Ox 98 11/07/23 06:55 FiO2 Intake & Output 11/06/23 11/07/23 11/07/23 18:59 06:59 18:59 Intake Total 237 Output Total 1050 Balance -813 Intake: Oral 237 Output: Urine 1050 Other: Voiding Method Indwelling Catheter Indwelling Catheter - Exam GENERAL EXAM: Alert, 78-year-old male, comfortable in no apparent distress. Currently on 4 L nasal cannula HEAD: Normocephalic and atraumatic EYES: Normal reaction of pupils, equal size. NOSE: Clear with pink turbinates. THROAT: No erythema or exudates. NECK: No masses, no JVD. CHEST: No chest wall deformity. LUNGS: Equal air entry with diffuse coarse rhonchi bilaterally. No conversational dyspnea. CVS: S1 and S2 normal with no audible murmur, regular rhythm. No extra heart sounds ABDOMEN: No hepatosplenomegaly, active bowel sounds, no guarding or rigidity. SPINE: No scoliosis or deformity SKIN: No rashes CENTRAL NERVOUS SYSTEM: No focal deficits, tone is normal in all 4 extremities. Has Avila catheter. EXTREMITIES: There is no peripheral edema, clubbing, or cyanosis. Peripheral pulses are intact. - Labs CBC & Chem 7: 11/07/23 06:37 11/07/23 06:37 Labs: Abnormal Lab Results - Last 24 Hours (Table) 11/06/23 11/06/23 11/07/23 Range/Units 16:35 21:18 06:03 RBC (4.30-5.90) m/uL Hgb (13.0-17.5) gm/dL Hct (39.0-53.0) % Plt Count (150-450) k/uL BUN (9.0-27.0) mg/dL Est GFR (CKD-EPI) (>=60) BUN/Creatinine Ratio (12.00-20.00) Ratio Glucose (70-110) mg/dL POC Glucose (mg/dL) 179 H 175 H 143 H (70-110) mg/dL 11/07/23 11/07/23 Range/Units 06:37 06:37 RBC 3.14 L (4.30-5.90) m/uL Hgb 10.2 L (13.0-17.5) gm/dL Hct 30.5 L (39.0-53.0) % Plt Count 143 L (150-450) k/uL BUN 35.0 H (9.0-27.0) mg/dL Est GFR (CKD-EPI) 56 L (>=60) BUN/Creatinine Ratio 26.92 H (12.00-20.00) Ratio Glucose 135 H (70-110) mg/dL POC Glucose (mg/dL) (70-110) mg/dL Assessment and Plan Assessment: Acute hypoxemic respiratory failure, possibly secondary to aspiration pneumonitis. Most recent chest x-ray demonstrates retrocardiac opacity and improving right basilar opacity. Patient reports that he choked on a piece of beef L2-L3 spondylolisthesis and spondylosis with stenosis status postoperative day #3 following an elective two-stage revision including a L2-L3 lateral interbody fusion followed by L2-L3 posterior stabilization and fusion History of coronary artery disease with previous NC and CABG History of hyperlipidemia History of hypertension History of GERD without esophagitis Former tobacco smoker Plan: The patient was seen and evaluated Chest x-ray, labs and medications reviewed Continued on bronchodilators Continued on Zosyn Titrate the FiO2 as tolerated We will continue to follow I have personally seen and examined the patient, performed the documentation and the assessment and plan as written. Number of minutes spent on the visit: 10.
--- NOTE | 2023-11-07 12:35 | P.NPCON ---
History of Present Illness - Reason for Consult acute renal failure - History of Present Illness Reason for consultation: Acute kidney injury History of present illness: Patient is a 78-year-old male seen in renal consultation for acute kidney injury. Patient's baseline creatinine is near 1 from September 2023. It peaked at 1.9 this admission and is down to 1.3 today. Patient came to the hospital for elective back surgery. Patient underwent L2-L3 lateral interbody fusion, L2-L4 revision posterior lateral instrumented fusion, removal of segmental hardware L3-L4 and insertion of biochemical device L2-L3. The procedure was done November 04, 2023. The next day the patient aspirated. He did receive a dose of Lasix on November 05, 2023. Currently he feels well. He is on a nasal cannula. Blood pressure stable. He has a Avila catheter and is nonoliguric. Patient denies gross hematuria or dysuria. Patient denies history of diabetes. He does have history of coronary disease and underwent CABG. He is currently tolerating oral intake. Denies chest pain or shortness of breath. Does have a cough with brown phlegm. Denies use of nonsteroidals. On IV antibiotics. Vital signs are stable. General: No acute distress. HEENT: Head exam is unremarkable. LUNGS: No audible rhonchi or wheezes. HEART: Rate and Rhythm are regular. ABDOMEN: Nontender. EXTREMITITES: No edema. Past Medical History Past Medical History: Coronary Artery Disease (CAD), GERD/Reflux, Hyperlipidemia, Hypertension, Myocardial Infarction (MA), Osteoarthritis (OA), Prostate Disorder Additional Past Medical History / Comment(s): trigeminal neuralgia Last Myocardial Infarction Date:: unk History of Any Multi-Drug Resistant Organisms: MRSA Date of last positivie culture/infection: 06/06/23 MDRO Source:: Cutaneous abscess Past Surgical History: Back Surgery, Cholecystectomy, Coronary Bypass/CABG, Heart Catheterization With Stent, Orthopedic Surgery Additional Past Surgical History / Comment(s): neck surgery & lumbar fusion,. right ankle surgery. 4 vessel bypass >10 yrs. ago in [place] Past Anesthesia/Blood Transfusion Reactions: No Reported Reaction Date of Last Stent Placement:: unk Smoking Status: Former smoker - Past Family History Mother Family Medical History: Cancer Additional Family Medical History / Comment(s): colon and stomach Medications and Allergies Home Medications Medication Instructions Recorded Confirmed Type Aspirin [Adult Low Dose Aspirin EC] 81 mg PO DAILY 10/31/22 10/29/23 History Omeprazole 20 mg PO DAILY 10/31/22 10/29/23 History Simvastatin 40 mg PO HS 10/31/22 10/29/23 History amLODIPine [Norvasc] 2.5 mg PO DAILY 10/31/22 10/29/23 History carBAMazepine 200 mg PO BID 10/31/22 10/29/23 History lisinopriL [Zestril] 20 mg PO DAILY 10/31/22 10/29/23 History tiZANidine [Zanaflex] 4 mg PO HS 10/31/22 10/29/23 History Cholecalciferol (Vitamin D3) 50 mcg PO MO 10/29/23 10/29/23 History [Vitamin D3 (50 Mcg = 2000 Iu)] Citalopram Hydrobromide [CeleXA] 40 mg PO DAILY 10/29/23 10/29/23 History Cyclobenzaprine [Flexeril] 10 mg PO HS 10/29/23 10/29/23 History Metoprolol Succinate (ER) [Toprol 100 mg PO DAILY 10/29/23 10/29/23 History Xl] Tamsulosin [Flomax] 0.4 mg PO DAILY 10/29/23 10/29/23 History Vit C/E/Zn/Coppr/Lutein/Zeaxan 1 each PO DAILY 10/29/23 10/29/23 History [Preservision Areds 2 Softgel] Allergies Allergy/AdvReac Type Severity Reaction Status Date / Time No Known Allergies Allergy Verified 10/29/23 09:48 Physical Exam Vitals: Vital Signs Temp Pulse Pulse Resp BP Pulse Ox 11/07/23 11:45 92 11/07/23 11:32 88 11/07/23 08:23 96 11/07/23 08:10 96 11/07/23 06:55 98.7 F 74 18 125/67 98 11/07/23 04:10 97 11/07/23 04:00 94 11/07/23 01:34 97.4 F L 71 19 116/63 98 11/07/23 00:21 95 11/07/23 00:11 90 11/06/23 21:20 105 H 11/06/23 21:10 104 H 11/06/23 19:39 99.0 F 114 H 17 145/70 92 L 11/06/23 16:04 105 H 11/06/23 15:55 107 H 11/06/23 13:53 99.1 F 104 H 16 138/66 93 L Intake and Output 11/06/23 11/07/23 11/07/23 22:59 06:59 14:59 Intake Total 237 Output Total 1050 Balance -813 Intake: Oral 237 Output: Urine 1050 Other: Voiding Method Indwelling Catheter Indwelling Catheter Results - Lab Results Most recent lab results Calcium 9.0 mg/dL (8.7-10.3) 11/07/23 06:37 11/07/23 06:37 11/07/23 06:37 Assessment and Plan Plan: Assessment: 1. Acute kidney injury secondary to hemodynamic ATN and use of Lasix. Creatinine peaked at 1.9 this admission and is 1.3 today. Baseline creatinine near 1 from September 2023. 2. Aspiration pneumonia on antibiotics. 3. Back pain with lower extremity weakness status post L2-L3 lateral interbody fusion, L2-L4 revision posterior lateral instrumented fusion, instrumentation L2-L4, removal of segmental hardware L3-L4 and insertion of biomechanical device L2-L3 dated November 04, 2023. Orthopedic surgery following. 4. Benign hypertension. Stable. 5. History of coronary disease status post CABG. Plan: Encouraged oral intake. Continue to hold lisinopril. Check renal ultrasound. Check UA. Avoid nephrotoxins. Thank you for the consultation. I will continue to follow the patient with you during his hospital stay.
--- NOTE | 2023-11-07 13:49 | US ---
EXAMINATION TYPE: US kidneys/renal and bladder DATE OF EXAM: 11/07/2023 COMPARISON: NONE CLINICAL INDICATION: Male, 78 years old with history of susie; SUSIE EXAM MEASUREMENTS: Right Kidney: 13.4x5.0x5.5 cm Left Kidney: 12.8x5.8x5.3 cm LEASE OPERATOR NOTES: Exam limited by bowel and body habitus. Detailed assessment of the kidney parenchy ma is limited. Right Kidney: No hydronephrosis or masses seen Left Kidney: No hydronephrosis or masses seen Bladder: obscured by bowel, pt on cath. Bilateral Jets seen: No IMPRESSION: No hydronephrosis on either side.
--- NOTE | 2023-11-07 15:18 | P.PN ---
Subjective Progress Note Date: 11/07/23 - History of Present Illness 11/05/2023 This is an 78-year-old gentleman with past medical history significant for morbid obesity, prior nicotine dependence for 15 years-quit smoking 30 to 35 years ago, occasional alcohol consumption, CAD, IN, CABG, negative dobutamine stress test October 31, 2023 reports inconclusive EKG prior to stress due to baseline EKG abnormalities,Echo 05/21/2023 reported normal LV size and systolic function with borderline concentric LVH, no pulmonary hypert ension,gastroesophageal reflux disease, hypertension, osteoarthritis, prostate disorder, trigeminal neuralgia, prior neck surgery and lumbar fusion and multiple other medical issues status post stage I: L2-L3 lateral fusion, stage II L2-L3 posterior stabilization. Earlier this morning, woke up shortness of breath, congested, wheezing, spitting up phlegm, hypoxic-requiring 5 L nasal cannula to maintain O2 sat of 91%, a team called. Lasix and nebulized bronchodilators ordered.chest x-ray at midnight reported diffuse reticulonodular interstitial changes with equalization of the pulm vascular. Incentive spirometer up to 1999. Denies passing flatus.Norvasc and DENISE inhibitor placed on hold, blood pressure soft. Reports positive pain. Denies numbness or tingling of extremities. denies chest pain, palpitations. Afebrile, Tmax 99.1, normal WBC. Hemoglobin 12, platelets 187. BUN 28.8 creatinine 1.4. Early a.m. blood sugars 130s to 140s, sliding scale and hemoglobin A1c ordered NovoLog sliding scale and hemoglobin A1c ordered. 11/06/2023 last night during dinner, choked on a piece of meat, possible aspiration and empiric Zosyn initiated. Patient denies chronic dysphagia. Patient developed further respiratory distress, O2 bumped up to 6 L, currently down to 3L.Chest x-ray last night reported patchy retrocardiac opacity and medial right basilar opacity slightly increasing. Speech therapy consulted for swallow evaluation. Afebrile, Tmax 99.7, normal WBC. Hemoglobin decreased to 9.6. Received Lasix yesterday .Renal function worsening, bicarb 24.6, BUN 45.9, creatinine 1.9. Blood sugars controlled. Hemoglobin A1c 5.9. PT reporting poor balance, decreased strength and endurance, ambulation fair, minimal to moderate assist. 11/07/2023 confusion during the night. Continues on Zosyn, nebulized bronchodilators. oxygen requirements currently up to 4 L, maintaining O2 sats in the 90s. Denies further choking. Afebrile, Tmax 99, WBC 7.3. Potassium 5.1, bicarb 27.9, BUN decreased to 35 and creatinine decreased to 1.3. Pain controlled. Complains of constipation, MiraLAX ordered. Objective - Vital Signs Vital signs: Vital Signs Temp 98.5 F 11/07/23 14:00 Pulse 94 11/07/23 14:00 Resp 18 11/07/23 14:00 BP 161/67 11/07/23 14:00 Pulse Ox 96 11/07/23 14:00 FiO2 Intake & Output 11/06/23 11/07/23 11/07/23 18:59 06:59 18:59 Intake Total 237 Output Total 1050 Balance -813 Intake: Oral 237 Output: Urine 1050 Other: Voiding Method Indwelling Catheter Indwelling Catheter Indwelling Catheter - Exam PHYSICAL EXAM: VITAL SIGNS: [As above] GENERAL: Alert and oriented x 3, morbid obese, sitting up in bed,NAD, HEENT: Atraumatic conjunctivae normal. eyes normal. NECK: Supple no JVD. No thyroid enlargement. No LNs CARDIOVASCULAR: S1, S2 regular. No murmur RESPIRATION: Unlabored, equal air entry, scattered rhonchi, slight wheezing, bilateral bases diminished ABDOMEN: Soft, obese, nontender . No guarding. no masses palpable. Positive bowel sounds LEGS: No edema. no swelling NERVOUS SYSTEM: Cranial N 2-12 grossly normal.No focal deficits. Strength and sensation grossly intact. Skin: Warm and dry, no rash - Labs CBC & Chem 7: 11/07/23 06:37 11/07/23 06:37 Labs: Abnormal Lab Results - Last 24 Hours (Table) 11/06/23 11/06/23 11/07/23 Range/Units 16:35 21:18 06:03 RBC (4.30-5.90) m/uL Hgb (13.0-17.5) gm/dL Hct (39.0-53.0) % Plt Count (150-450) k/uL BUN (9.0-27.0) mg/dL Est GFR (CKD-EPI) (>=60) BUN/Creatinine Ratio (12.00-20.00) Ratio Glucose (70-110) mg/dL POC Glucose (mg/dL) 179 H 175 H 143 H (70-110) mg/dL 11/07/23 11/07/23 11/07/23 Range/Units 06:37 06:37 11:57 RBC 3.14 L (4.30-5.90) m/uL Hgb 10.2 L (13.0-17.5) gm/dL Hct 30.5 L (39.0-53.0) % Plt Count 143 L (150-450) k/uL BUN 35.0 H (9.0-27.0) mg/dL Est GFR (CKD-EPI) 56 L (>=60) BUN/Creatinine Ratio 26.92 H (12.00-20.00) Ratio Glucose 135 H (70-110) mg/dL POC Glucose (mg/dL) 138 H (70-110) mg/dL Assessment and Plan Assessment: Status post Stage I: L2-L3 lateral fusion, stage II: L2-L3 posterior stabilization secondary to L2-3 spondylolysis, spondylosis, bilateral lower extremity radiculopathy and weakness, low back pain. Possible aspiration pneumonitis, patient choked on meat at dinner, swallow evaluation pending Acute hypoxic respiratory failure possibly secondary to mild fluid overload related to procedure and possibly aspiration Acute renal failure secondary to diuretics, ATN, baseline creatinine near 1, improving. Morbid obesity, BMI 36 CAD history of IN and CABG Osteoarthritis Nicotine dependence, smoked x 15 years, quit 30 to 35 years ago Prostate disorder Hemoglobin A1c 5.9 Plan: Continue on current medication regime, monitoring and symptomatic treatment. Aggressive pulmonary toileting, incentive spirometer reinforced, continue on Zosyn and nebulized bronchodilators. DENISE inhibitor on hold at this, renal function improving. Evaluated by nephrology with recommendations noted and appreciated. Pain management and DVT prophylaxis as per primary. Up in chair for all meals. PT. Accepted at [facility].pending improvement in pulmonary function. The impression and plan of care has been dictated as directed. : I performed a history and examination of this patient, discussed the same with the dictator. I agree with the dictator's note ,documented as a scribe. Any additional findings or plans will be noted.
[2023-11-07 16:22] LABS: Glucose,Whole Blood 150 mg/dL (70-110)
[2023-11-07 18:19] LABS: Appearance,Urine Clear (Clear); Bilirubin,Urine Negative (Negative); Blood,Urine Moderate (Negative); Color,Urine Yellow; Glucose,Urine (UA) Negative (Negative); Ketones,Urine Negative (Negative); Leukocyte Esterase,Urine Moderate (Negative); Nitrite,Urine Negative (Negative); Protein,Urine 2+ (Negative); RBC,Urine >182 /hpf (0-5); Specific Gravity,Urine 1.022 (1.001-1.035); Urobilinogen,Urine <2.0 mg/dL (<2.0); WBC,Urine 19 /hpf (0-5)
[2023-11-07 20:35] LABS: Glucose,Whole Blood 156 mg/dL (70-110)
[2023-11-07] MEDS: SENNOSIDES-DOCUSATE SODIUM 1 EACH TAB PO PRN (21:19)
[2023-11-08 06:08] LABS: Glucose,Whole Blood 132 mg/dL (70-110)
[2023-11-08 09:09] LABS: African American GFR (CKD) >90 (>60 ml/min/1.73 sqM); Anion Gap 5 mmol/L; Blood Urea Nitrogen 23 mg/dL (9-20); Calcium 8.7 mg/dL (8.4-10.2); Carbon Dioxide 29 mmol/L (22-30); Chloride 105 mmol/L (98-107); Glucose 132 mg/dL (74-99); Non-African American GFR(CKD) 84 (>60 ml/min/1.73 sqM); Potassium 4.2 mmol/L (3.5-5.1); Sodium 139 mmol/L (137-145)
[2023-11-08 09:11] VITALS: BP 167/71; PULSE 96; RESP 19; TEMP 98.4
--- NOTE | 2023-11-08 09:18 | P.PN ---
Subjective Progress Note Date: 11/08/23 Principal diagnosis: 1. Grade I spondylolisthesis of L2 on L3 2. L2-3 spondylosis with stenosis, severe 3. Bilateral lower extremity radiculopathy 4. Bilateral lower extremity weakness 5. Low back pain Patient seen and examined this morning. Patient was has been ambulating within room and transferring to chair with SBA with walker. Patient tolerated activity well. Surgical incisions to the paralumbar spine, dressings CDI. New dressings have been applied. Surgical incision to the left lateral flank region, dressing is clean dry and intact. Patient is progressing well with his activity. Patient has been afebrile and denies chest pain. Continue to encourage incentive spirometer. Patient is cleared from orthopedic standpoint for discharge when medically stable. Objective - Vital Signs Vital signs: Vital Signs Temp 98.4 F 11/08/23 07:48 Pulse 85 11/08/23 07:48 Resp 19 11/08/23 07:48 BP 167/71 11/08/23 07:48 Pulse Ox 91 L 11/08/23 07:48 FiO2 Intake & Output 11/07/23 11/08/23 11/08/23 18:59 06:59 18:59 Intake Total 100 200 Output Total 2000 1000 Balance -1900 -800 Intake: Intake, IV Titration 100 200 Amount Piperacillin-Tazobactam 3 100 200 .375 gm In Sodium Chloride 0.9% 100 ml @ 25 mls/hr IVPB Q8H [facility] Rx#: [id number] Output: Urine 2000 1000 Other: Voiding Method Indwelling Catheter Indwelling Catheter # Bowel Movements 1 - Exam Physical Examination General: The patient is awake and alert, mild to moderate distress due to respiratory congestion Skin: Skin is warm and dry with no obvious rashes or lesions. Surgical incisions to the left lateral abdomen, dressing is clean dry and intact. Surgical incisions at her lumbar spine, dressing is CDI. Eye: Pupils are equal, round and reactive to light, extra-ocular movements are intact; there is normal conjunctiva bilaterally. Neck: The neck is supple, there is no tenderness and ROM intact. Cardiovascular: There is a regular rate and rhythm. No murmur, rub or gallop is appreciated. Respiratory: Respirations unlabored, productive cough Gastrointestinal: Soft, non-distended, non-tender abdomen. Back: There is no tenderness to palpation in the midline, paralumbar, paratho racic or buttocks region. There is no obvious deformity . Musculoskeletal: ROM limited secondary to pain and stiffness from surgical procedure. Muscle strength in all major muscle groups of bilateral upper extremities 5/5, bilateral lower extremities 4/5. Neurological: CN 2-12 intact. There are no obvious motor or sensory deficits. Movement and coordination equal and intact. Sensory exam to light touch intact C5-T1 and intact from L2-S1. Reflexes 2/4 in bilateral upper and lower extremities. Negative Hoffmans, babinski, and clonus signs. Psychiatric: Cooperative, appropriate mood & affect, normal judgment. - Labs CBC & Chem 7: 11/07/23 06:37 11/07/23 06:37 Labs: Abnormal Lab Results - Last 24 Hours (Table) 11/07/23 11/07/23 11/07/23 Range/Units 06:37 11:57 16:18 BUN 35.0 H (9.0-27.0) mg/dL Est GFR (CKD-EPI) 56 L (>=60) BUN/Creatinine Ratio 26.92 H (12.00-20.00) Ratio Glucose 135 H (70-110) mg/dL POC Glucose (mg/dL) 138 H 150 H (70-110) mg/dL Urine Protein (Negative) Urine Blood (Negative) Ur Leukocyte Esterase (Negative) Urine RBC (0-5) /hpf Urine WBC (0-5) /hpf 11/07/23 11/07/23 11/08/23 Range/Units 17:00 20:33 06:07 BUN (9.0-27.0) mg/dL Est GFR (CKD-EPI) (>=60) BUN/Creatinine Ratio (12.00-20.00) Ratio Glucose (70-110) mg/dL POC Glucose (mg/dL) 156 H 132 H (70-110) mg/dL Urine Protein 2+ H (Negative) Urine Blood Moderate H (Negative) Ur Leukocyte Esterase Moderate H (Negative) Urine RBC >182 H (0-5) /hpf Urine WBC 19 H (0-5) /hpf Assessment and Plan Assessment: Postop day 4: Stage I: L2-L3 lateral fusion, stage II: L2-L3 posterior stabilization 1. Grade I spondylolisthesis of L2 on L3 2. L2-3 spondylosis with stenosis, severe 3. Bilateral lower extremity radiculopathy 4. Bilateral lower extremity weakness 5. Low back pain Plan: -Appreciate international travel consultant and team management. -Activity: Ambulate QID, OOB all meals, up and about, limit lifting bending twisting to less than 5 lbs. Use walker or cane if needed for stability. -Daily PT/OT, increase ambulation strength and balance. -Pain control: Adequate at this time -Meds: reviewed -GI ppx: Ken wayne -YVES yin per medicine and nephrology. -DVT PPX: Eliquis -Hygiene: Shower today. Maintain dressing clean and dry. Meticulous cleaning after BMs away from the incision site -Encourage IS 10x/hr -Dispo: Patient is cleared from orthopedic standpoint for discharge when medically stable. *I reviewed and discussed this case with my attending Dr. Chiu, whom has reviewed this chart and films and is in agreement with assessment and plan of care as outlined above. I have personally seen and examined the patient, performed the documentation and the assessment and plan as written. Number of minutes spent on the visit: 20m
--- NOTE | 2023-11-08 10:14 | P.PN ---
Subjective Patient is seen in follow-up for acute kidney injury. Renal function back to baseline. Nonoliguric. Oral intake is good. No vomiting or diarrhea. No active complaints. Vital signs are stable. General: No acute distress. HEENT: Head exam is unremarkable. LUNGS: No audible rhonchi or wheezes. HEART: Rate and Rhythm are regular. ABDOMEN: Nontender. EXTREMITITES: No edema. Objective - Vital Signs Vital signs: Vital Signs Temp 98.4 F 11/08/23 07:48 Pulse 96 11/08/23 09:20 Resp 19 11/08/23 07:48 BP 167/71 11/08/23 07:48 Pulse Ox 91 L 11/08/23 07:48 FiO2 Intake & Output 11/07/23 11/08/23 11/08/23 18:59 06:59 18:59 Intake Total 100 200 Output Total 2000 1000 Balance -1900 -800 Intake: Intake, IV Titration 100 200 Amount Piperacillin-Tazobactam 3 100 200 .375 gm In Sodium Chloride 0.9% 100 ml @ 25 mls/hr IVPB Q8H [facility] Rx#: [id number] Output: Urine 1999 1000 Other: Voiding Method Indwelling Catheter Indwelling Catheter # Bowel Movements 1 - Labs CBC & Chem 7: 11/07/23 06:37 11/08/23 08:09 Labs: Abnormal Lab Results - Last 24 Hours (Table) 11/07/23 11/07/23 11/07/23 Range/Units 06:37 11:57 16:18 BUN 35.0 H (9.0-27.0) mg/dL Est GFR (CKD-EPI) 56 L (>=60) BUN/Creatinine Ratio 26.92 H (12.00-20.00) Ratio Glucose 135 H (70-110) mg/dL POC Glucose (mg/dL) 138 H 150 H (70-110) mg/dL Urine Protein (Negative) Urine Blood (Negative) Ur Leukocyte Esterase (Negative) Urine RBC (0-5) /hpf Urine WBC (0-5) /hpf 11/07/23 11/07/23 11/08/23 Range/Units 17:00 20:33 06:07 BUN (9.0-27.0) mg/dL Est GFR (CKD-EPI) (>=60) BUN/Creatinine Ratio (12.00-20.00) Ratio Glucose (70-110) mg/dL POC Glucose (mg/dL) 156 H 132 H (70-110) mg/dL Urine Protein 2+ H (Negative) Urine Blood Moderate H (Negative) Ur Leukocyte Esterase Moderate H (Negative) Urine RBC >182 H (0-5) /hpf Urine WBC 19 H (0-5) /hpf 11/08/23 Range/Units 08:09 BUN 23 H (9.0-27.0) mg/dL Est GFR (CKD-EPI) (>=60) BUN/Creatinine Ratio (12.00-20.00) Ratio Glucose 132 H (70-110) mg/dL POC Glucose (mg/dL) (70-110) mg/dL Urine Protein (Negative) Urine Blood (Negative) Ur Leukocyte Esterase (Negative) Urine RBC (0-5) /hpf Urine WBC (0-5) /hpf Assessment and Plan Plan: Assessment: 1. Acute kidney injury secondary to hemodynamic ATN and use of Lasix. Creatinine peaked at 1.9 this admission and is 0.81 today. Baseline creatinine near 1 from September 2023. No hydronephrosis noted on kidney ultrasound. 2. Aspiration pneumonia on antibiotics. 3. Back pain with lower extremity weakness status post L2-L3 lateral interbody fusion, L2-L4 revision posterior lateral instrumented fusion, instrumentation L2-L4, removal of segmental hardware L3-L4 and insertion of biomechanical device L2-L3 dated November 04, 2023. Orthopedic surgery following. 4. Benign hypertension. Stable. 5. History of coronary disease status post CABG. Plan: Encouraged oral intake. DC Avila catheter. Monitor serial bladder scans to make sure no urinary retention. Resume lisinopril at a low dose.
[2023-11-08 11:46] LABS: Glucose,Whole Blood 150 mg/dL (70-110)
--- NOTE | 2023-11-08 11:50 | P.PN ---
Subjective Progress Note Date: 11/08/23 I am seeing this patient in new consultation today 11/08/2023 for concerns of possible aspiration. Patient is currently postoperative day #2 following a two- stage surgery including L2-L3 lateral fusion followed by a L2-L3 posterior stabilization. Patient is a 78-year-old white male with past medical history significant for coronary artery disease and previous NE, coronary artery bypass grafting, hyperlipidemia, hypertension, GERD, and chronic back pain. Patient was brought in on 11/04/2023 for an elective two-stage revision including a L2- L3 lateral interbody fusion followed by L2-L3 posterior stabilization and fusion. Postoperatively, early in the morning on 11/05/2023, an a team was called for increased respiratory distress. Chest x-ray at that time demonstrated diffuse reticular nodular interstitial changes with equalization of pulmonary vasculature. Favoring pulmonary vascular congestion over interstitial infection. No focal airspace consolidation was appreciated. Patient was given a dose of Lasix. He is currently sitting up in bed, on 2 L/min nasal cannula. He states that he choked on a piece of beef. He has a productive cough with what appears to be food products. A follow-up chest x-ray done yesterday evening shows a increased patchy retrocardiac opacity and medial right basilar opacity. He had a low-grade temperature of 99.7 F earlier. Most recent CBC from yesterday unremarkable. No leukocytosis. Most recent BMP from yesterday also fairly unremarkable. Incentives from her is at bedside. Vital signs are stable. The patient is seen today November 07, 2023 in follow-up on the regular medical floor. He is currently resting comfortably in bed. Awake and alert in no acute distress. He is maintaining O2 saturations in the 90s on 4 L/min per nasal cannula. He has normal saline at time mL per hour. No further choking or aspiration episodes. White count 7.3. Hemoglobin 10.4. Platelets 143. Sodium 135. Potassium 5.1. Bicarb 28. BUN 35. Creatinine 1.3. Glucose 135. Chest x-ray showed patchy retrocardiac opacities. Improved aeration in the right base. He remains on DuoNeb inhalations, antibiotics in the form of Zosyn. The patient is seen today November 08, 2023 in follow-up on the regular medical floor. He is currently maintaining good O2 saturations in the 90s on room air. Resting comfortably in bed. Denies any cough or congestion. No IV fluids. White count 139. Potassium 4.2. Bicarb 29. BUN 23. Creatinine 0.81. Glucose 132. Ultrasound of the kidneys revealed no evidence of hydronephrosis. He remains on Zosyn. Objective - Vital Signs Vital signs: Vital Signs Temp 98.4 F 11/08/23 07:48 Pulse 96 11/08/23 09:20 Resp 19 11/08/23 07:48 BP 167/71 11/08/23 07:48 Pulse Ox 91 L 11/08/23 07:48 FiO2 Intake & Output 11/07/23 11/08/23 11/08/23 18:59 06:59 18:59 Intake Total 100 200 Output Total 1999 1000 Balance -1900 -800 Intake: Intake, IV Titration 100 200 Amount Piperacillin-Tazobactam 3 100 200 .375 gm In Sodium Chloride 0.9% 100 ml @ 25 mls/hr IVPB Q8H [facility] Rx#: [id number] Output: Urine 1999 999 Other: Voiding Method Indwelling Catheter Indwelling Catheter # Bowel Movements 1 - Exam GENERAL EXAM: Alert, 78-year-old male, resting in bed, on room air, comfortable in no apparent distress. HEAD: Normocephalic and atraumatic EYES: Normal reaction of pupils, equal size. NOSE: Clear with pink turbinates. THROAT: No erythema or exudates. NECK: No masses, no JVD. CHEST: No chest wall deformity. LUNGS: Equal air entry with diffuse coarse rhonchi bilaterally. No conversational dyspnea. CVS: S1 and S2 normal with no audible murmur, regular rhythm. No extra heart sounds ABDOMEN: No hepatosplenomegaly, active bowel sounds, no guarding or rigidity. SPINE: No scoliosis or deformity SKIN: No rashes CENTRAL NERVOUS SYSTEM: No focal deficits, tone is normal in all 4 extremities. Has Avila catheter. EXTREMITIES: There is no peripheral edema, clubbing, or cyanosis. Peripheral pulses are intact. - Labs CBC & Chem 7: 11/07/23 06:37 11/08/23 08:09 Labs: Abnormal Lab Results - Last 24 Hours (Table) 11/07/23 11/07/23 11/07/23 Range/Units 06:37 11:57 16:18 BUN 35.0 H (9.0-27.0) mg/dL Est GFR (CKD-EPI) 56 L (>=60) BUN/Creatinine Ratio 26.92 H (12.00-20.00) Ratio Glucose 135 H (70-110) mg/dL POC Glucose (mg/dL) 138 H 150 H (70-110) mg/dL Urine Protein (Negative) Urine Blood (Negative) Ur Leukocyte Esterase (Negative) Urine RBC (0-5) /hpf Urine WBC (0-5) /hpf 11/07/23 11/07/23 11/08/23 Range/Units 17:00 20:33 06:07 BUN (9.0-27.0) mg/dL Est GFR (CKD-EPI) (>=60) BUN/Creatinine Ratio (12.00-20.00) Ratio Glucose (70-110) mg/dL POC Glucose (mg/dL) 156 H 132 H (70-110) mg/dL Urine Protein 2+ H (Negative) Urine Blood Moderate H (Negative) Ur Leukocyte Esterase Moderate H (Negative) Urine RBC >182 H (0-5) /hpf Urine WBC 19 H (0-5) /hpf 11/08/23 Range/Units 08:09 BUN 23 H (9.0-27.0) mg/dL Est GFR (CKD-EPI) (>=60) BUN/Creatinine Ratio (12.00-20.00) Ratio Glucose 132 H (70-110) mg/dL POC Glucose (mg/dL) (70-110) mg/dL Urine Protein (Negative) Urine Blood (Negative) Ur Leukocyte Esterase (Negative) Urine RBC (0-5) /hpf Urine WBC (0-5) /hpf Assessment and Plan Assessment: Acute hypoxemic respiratory failure, possibly secondary to aspiration pneumonitis. Most recent chest x-ray demonstrates retrocardiac opacity and improving right basilar opacity. Patient reports that he choked on a piece of beef L2-L3 spondylolisthesis and spondylosis with stenosis status postoperative day #4 following an elective two-stage revision including a L2-L3 lateral interbody fusion followed by L2-L3 posterior stabilization and fusion History of coronary artery disease with previous NE and CABG History of hyperlipidemia History of hypertension History of GERD without esophagitis Former tobacco smoker Plan: The patient was seen and evaluated Labs and medications reviewed Continued on bronchodilators Discontinue Zosyn Initiated on Augmentin Stable and on room air Plan is for [facility] for subacute rehabilitation at discharge I have personally seen and examined the patient, performed the documentation and the assessment and plan as written. Number of minutes spent on the visit: 10.
--- NOTE | 2023-11-08 12:01 | P.DS ---
Providers Date of admission: 11/04/23 05:34 Expected date of discharge: 11/08/23 Attending physician: Vijay Garcias Consults: 11/04/23 11:10 Consult Physician Routine Consulting Provider: Vijay Garcias Consult Reason/Comments: medical management s/p L2-L3 lateral interbody fusion; L2-4 decompr f Do you want consulting provider notified?: Yes 11/05/23 15:23 Consult Physician Routine Consulting Provider: Elia Potts Consult Reason/Comments: Possible aspiration Do you want consulting provider notified?: Yes 11/06/23 16:39 Consult Physician Routine Consulting Provider: Kelby Ramos Consult Reason/Comments: Acute renal failure, sp OR Do you want consulting provider notified?: Yes Primary care physician: Vijay Garcias Hospital Course: Final Diagnoses: Status post Stage I: L2-L3 lateral fusion, stage II: L2-L3 posterior stabilization secondary to L2-3 spondylolysis, spondylosis, bilateral lower extremity radiculopathy and weakness, low back pain. Possible aspiration pneumonitis, patient choked on meat at dinner, swallow evaluation pending Acute hypoxic respiratory failure possibly secondary to mild fluid overload r elated to procedure and possibly aspiration Acute renal failure secondary to diuretics, ATN, baseline creatinine near 1, improving. Morbid obesity, BMI 36 CAD history of NV and CABG Osteoarthritis Nicotine dependence, smoked x 15 years, quit 30 to 35 years ago Prostate disorder Hemoglobin A1c 5.9 Hospital course: This is an 78-year-old gentleman with past medical history significant for morb id obesity, prior nicotine dependence for 15 years-quit smoking 30 to 35 years ago, occasional alcohol consumption, CAD, NV, CABG, negative dobutamine stress test October 31, 2023 reports inconclusive EKG prior to stress due to baseline EKG abnormalities,Echo 05/21/2023 reported normal LV size and systolic function with borderline concentric LVH, no pulmonary hypertension,gastroesophageal reflux disease, hypertension, osteoarthritis, prostate disorder, trigeminal neuralgia, prior neck surgery and lumbar fusion and multiple other medical issues status post stage I: L2-L3 lateral fusion, stage II L2-L3 posterior stabilization. Earlier this morning, woke up shortness of breath, congested, wheezing, spitting up phlegm, hypoxic-requiring 5 L nasal cannula to maintain O2 sat of 91%, a team called. Lasix and nebulized bronchodilators ordered.chest x-ray at midnight reported diffuse reticulonodular interstitial changes with equalization of the pulm vascular. Incentive spirometer up to 1999. Denies passing flatus.Norvasc and DENISE inhibitor placed on hold, blood pressure soft. Reports positive pain. Denies numbness or tingling of extremities. denies chest pain, palpitations. Afebrile, Tmax 99.1, normal WBC. Hemoglobin 12, platelets 187. BUN 28.8 creatinine 1.4. Early a.m. blood sugars 130s to 140s, sliding scale and hemoglobin A1c ordered NovoLog sliding scale and hemoglobin A1c ordered. 11/06/2023 last night during dinner, choked on a piece of meat, possible aspiration and empiric Zosyn initiated. Patient denies chronic dysphagia. Patient developed further respiratory distress, O2 bumped up to 6 L, currently down to 3L.Chest x-ray last night reported patchy retrocardiac opacity and medial right basilar opacity slightly increasing. Speech therapy consulted for swallow evaluation. Afebrile, Tmax 99.7, normal WBC. Hemoglobin decreased to 9.6. Received Lasix yesterday .Renal function worsening, bicarb 24.6, BUN 45.9, creatinine 1.9. Blood sugars controlled. Hemoglobin A1c 5.9. PT reporting poor balance, decreased strength and endurance, ambulation fair, minimal to moderate assist. 11/07/2023 confusion during the night. Continues on Zosyn, nebulized bronchodi lators. oxygen requirements currently up to 4 L, maintaining O2 sats in the 90s. Denies further choking. Afebrile, Tmax 99, WBC 7.3. Potassium 5.1, bicarb 27.9, BUN decreased to 35 and creatinine decreased to 1.3. Pain controlled. Complains of constipation, MiraLAX ordered. Significant clinical improvement, oxygen weaned off, maintaining O2 sats in the mid 90s on room air. Maintained on Zosyn. Afebrile, normal WBC, renal function stabilized with BUN 23, creatinine 0.81. Hemoglobin A1c 5.9, recommend continue Accu-Cheks for tight blood sugar control. Blood sugars controlled. Patient will be discharged to [facility] subacute rehab today in a stable condition with guarded prognosis pending final DC recommendations and clearance per pulmonary and pain management/Rxs as per orthopedic spine. The impression and plan of care has been dictated as directed. : I performed a history and examination of this patient, discussed the same with the dictator. I agree with the dictator's note ,documented as a scribe. Any additional findings or plans will be noted. Patient Condition at Discharge: Stable Plan - Discharge Summary Discharge Rx Participant: Yes New Discharge Prescriptions: New Amoxic-Pot Clav 875-125Mg [Augmentin 875-125] 1 each PO Q12HR 5 Days #10 tab Benzocaine/Menthol Lozeng [Cepacol lozenge] 1 each MUCOUS MEM Q4HR PRN lozenge PRN Reason: Cough INSULIN LISPRO (HumaLOG) [humaLOG] 0 unit SQ ACHS #10 ml polyethylene glycoL 3350 [Miralax] 17 gm PO DAILY packet Acetaminophen Tab [Tylenol] 650 mg PO Q6HR tab lisinopriL [Zestril] 5 mg PO DAILY tab Ipratropium-Albuterol Nebulize [Duoneb 0.5 mg-3 mg/3 ml Soln] 3 ml INHALATION QID #1 each Atorvastatin [Lipitor] 20 mg PO HS tab Magnesium Hydroxide [Milk of Magnesia] 2,400 mg PO DAILY PRN ml PRN Reason: Constipation Simethicone Chew [Mylicon Chew] 160 mg PO TID tab Gabapentin [Neurontin] 300 mg PO TID #9 cap Sennosides-Docusate Sodium [Senokot-S] 2 each PO DAILY PRN tab PRN Reason: Constipation Continue carBAMazepine 200 mg PO BID Omeprazole 20 mg PO DAILY tiZANidine [Zanaflex] 4 mg PO HS Citalopram Hydrobromide [CeleXA] 40 mg PO DAILY amLODIPine [Norvasc] 2.5 mg PO DAILY Aspirin [Adult Low Dose Aspirin EC] 81 mg PO DAILY Metoprolol Succinate (ER) [Toprol XL] 100 mg PO DAILY Cyclobenzaprine [Flexeril] 10 mg PO HS Tamsulosin [Flomax] 0.4 mg PO DAILY Vit C/E/Zn/Coppr/Lutein/Zeaxan [Preservision Areds 2 Softgel] 1 each PO DAILY Cholecalciferol (Vitamin D3) [Vitamin D3 (50 Mcg = 2000 Iu)] 50 mcg PO MO Discontinued lisinopriL [Zestril] 20 mg PO DAILY Simvastatin 40 mg PO HS Discharge Medication List Aspirin [Adult Low Dose Aspirin EC] 81 mg PO DAILY 10/31/22 [History] Omeprazole 20 mg PO DAILY 10/31/22 [History] amLODIPine [Norvasc] 2.5 mg PO DAILY 10/31/22 [History] carBAMazepine 200 mg PO BID 10/31/22 [History] tiZANidine [Zanaflex] 4 mg PO HS 10/31/22 [History] Cholecalciferol (Vitamin D3) [Vitamin D3 (50 Mcg = 2000 Iu)] 50 mcg PO MO 10/29/23 [History] Citalopram Hydrobromide [CeleXA] 40 mg PO DAILY 10/29/23 [History] Cyclobenzaprine [Flexeril] 10 mg PO HS 10/29/23 [History] Metoprolol Succinate (ER) [Toprol XL] 100 mg PO DAILY 10/29/23 [History] Tamsulosin [Flomax] 0.4 mg PO DAILY 10/29/23 [History] Vit C/E/Zn/Coppr/Lutein/Zeaxan [Preservision Areds 2 Softgel] 1 each PO DAILY 10/29/23 [History] Acetaminophen Tab [Tylenol] 650 mg PO Q6HR tab 11/08/23 [Rx] Amoxic-Pot Clav 875-125Mg [Augmentin 875-125] 1 each PO Q12HR 5 Days #10 tab 11/08/23 [Rx] Atorvastatin [Lipitor] 20 mg PO HS tab 11/08/23 [Rx] Benzocaine/Menthol Lozeng [Cepacol lozenge] 1 each MUCOUS MEM Q4HR PRN lozenge 11/08/23 [Rx] Gabapentin [Neurontin] 300 mg PO TID #9 cap 11/08/23 [Rx] INSULIN LISPRO (HumaLOG) [humaLOG] 0 unit SQ ACHS #10 ml 11/08/23 [Rx] Ipratropium-Albuterol Nebulize [Duoneb 0.5 mg-3 mg/3 ml Soln] 3 ml INHALATION QID #1 each 11/08/23 [Rx] Magnesium Hydroxide [Milk of Magnesia] 2,400 mg PO DAILY PRN ml 11/08/23 [Rx] Sennosides-Docusate Sodium [Senokot-S] 2 each PO DAILY PRN tab 11/08/23 [Rx] Simethicone Chew [Mylicon Chew] 160 mg PO TID tab 11/08/23 [Rx] lisinopriL [Zestril] 5 mg PO DAILY tab 11/08/23 [Rx] polyethylene glycoL 3350 [Miralax] 17 gm PO DAILY packet 11/08/23 [Rx] Follow up Appointment(s)/Referral(s): Vijay Garcias DO [Primary Care Provider] - 1 Week (After DC from subacute rehab) Mendy Forrester NPC [Nurse Practitioner] - 11/18/23 10:10 am Activity/Diet/Wound Care/Special Instructions: Pain management as per orthopedic spine Discharge Disposition: TRANSFER TO SNF/ECF
[2023-11-08] MEDS ORDERED: AMOXIC-POT CLAV 875-125MG 1 EACH TAB PO SCH (21:00)
[2023-11-09] MEDS ORDERED: lisinopriL 5 MG TAB PO SCH (09:00)
== END 2023-11-08 14:50 | DRG 453 ==
LOC: 2ORMAIN 05:34 → 4SSUR 14:52
PROVIDERS: ADMIT Family Medicine; ATTEND Family Medicine
PROC: 0SG1071 Fusion of 2 or more Lumbar Vertebral Joints with Autologous Tissue Substitute, Posterior Approach, Posterior Column, Open Approach (ICD-10-PCS; 2023-11-04)
PROC: 0ST20ZZ Resection of Lumbar Vertebral Disc, Open Approach (ICD-10-PCS; 2023-11-04)
PROC: 0SP004Z Removal of Internal Fixation Device from Lumbar Vertebral Joint, Open Approach (ICD-10-PCS; 2023-11-04)
PROC: 8E0WXBZ Computer Assisted Procedure of Trunk Region (ICD-10-PCS; 2023-11-04)
PROC: 0SG10AJ Fusion of 2 or more Lumbar Vertebral Joints with Interbody Fusion Device, Posterior Approach, Anterior Column, Open Approach (ICD-10-PCS; principal; 2023-11-04 07:30)
DX: M47.26 Other spondylosis with radiculopathy, lumbar region (principal); J69.0 Pneumonitis due to inhalation of food and vomit; J96.01 Acute respiratory failure with hypoxia; N17.0 Acute kidney failure with tubular necrosis; E66.01 Morbid (severe) obesity due to excess calories; N18.30 Chronic kidney disease, stage 3 unspecified; T17.918A Gastric contents in respiratory tract, part unspecified causing other injury, initial encounter; I12.9 Hypertensive chronic kidney disease with stage 1 through stage 4 chronic kidney disease, or unspecified chronic kidney disease; M43.16 Spondylolisthesis, lumbar region; M48.061 Spinal stenosis, lumbar region without neurogenic claudication; M16.0 Bilateral primary osteoarthritis of hip; M25.78 Osteophyte, vertebrae; E87.70 Fluid overload, unspecified; I25.10 Atherosclerotic heart disease of native coronary artery without angina pectoris; N42.9 Disorder of prostate, unspecified; N14.0 Analgesic nephropathy; T50.2X5A Adverse effect of carbonic-anhydrase inhibitors, benzothiadiazides and other diuretics, initial encounter; E78.5 Hyperlipidemia, unspecified; K59.00 Constipation, unspecified; K21.9 Gastro-esophageal reflux disease without esophagitis; G89.29 Other chronic pain; Z95.1 Presence of aortocoronary bypass graft; Z96.698 Presence of other orthopedic joint implants; Z68.36 Body mass index [BMI] 36.0-36.9, adult; Z87.891 Personal history of nicotine dependence; I25.2 Old myocardial infarction; Z98.1 Arthrodesis status; Z86.14 Personal history of Methicillin resistant Staphylococcus aureus infection; Z79.82 Long term (current) use of aspirin; Z79.899 Other long term (current) drug therapy
CPT/HCPCS: 71045; 72100; 72131; 76770; 80048; 81001; 83036; 83735; 85025; 85027; 94640; 94760

== ENCOUNTER 2024-07-16 12:06 | Day surgery (SDC) | payer MEDICARE ==
[2024-07-15 12:46] VITALS: BMI 34.0
[~2024-07-16 12:06] MED LIST changes: +LIDOCAINE 1% (10MG/ML) FOR IV START INTRADERMA PRN; -TRANEXAMIC 1,000 MG/100ML-NACL 1,000 MG in SALINE 1 100ML.BAG IVPB PRN
[2024-07-16 12:29] VITALS: TEMP 97.5
[2024-07-16] MEDS: LACTATED RINGERS 1,000 ML IV SCH (12:41)
[2024-07-16] MEDS ORDERED: PROPOFOL 10 MG/ML 20 ML VIAL IV ONE (13:06)
[2024-07-16] MEDS: IV FLUID CONTINUATION 1,000 ML IV ONE (13:08)
[2024-07-16 14:15] VITALS: RESP 18
[2024-07-16 14:19] VITALS: BP 167/76; PULSE 65
--- NOTE | 2024-07-16 15:46 | P.OP ---
Date of Procedure: 07/16/24 Preoperative Diagnosis: Rectal Bleeding Postoperative Diagnosis: 1. Diminutive Polyp Right Colon 2 Diverticulosis Procedure(s) Performed: Colonoscopy Anesthesia: other (Sedation) Surgeon: Tomy Rm Pathology: none sent Condition: stable Disposition: PACU Description of Procedure: After informed consent was obtained, the patient was placed in the left lateral position and the patient was sedated. Monitoring was provided throughout the entire procedure. Digital rectal exam was performed revealing normal sphincter tone and no external hemorrhoids. The colonoscope was inserted into rectum and advanced under direct visualization, without difficulty, to the cecum, where the cecal strap, appendiceal orifice, and the ileocecal valve were identified. The quality of the preparation was good. The colonoscope was then withdrawn while carefully examining the mucosa. The colonic mucosa appeared normal with normal vascularity and haustral markings. No masses, polyps, or AVM/s were seen. There was diverticulosis seen in the left colon. There was a small diminutive polyp in the right colon. On retroflexed view in the rectum, there are small internal hemorrhoids. The endoscope was removed and the procedure terminated. The patient tolerated the procedure well without complications. Patient will need a repeat colonoscopy in 2 years due to the diminutive polyp in the right colon.
== END 2024-07-16 14:19 | disposition home or self-care (01) ==
LOC: ORWHC2ENDO 12:06
PROVIDERS: ATTEND Surgery
DX: K62.5 Hemorrhage of anus and rectum (principal); K63.5 Polyp of colon; K57.30 Diverticulosis of large intestine without perforation or abscess without bleeding; K64.8 Other hemorrhoids; I10 Essential (primary) hypertension; I25.10 Atherosclerotic heart disease of native coronary artery without angina pectoris; Z95.1 Presence of aortocoronary bypass graft; E78.5 Hyperlipidemia, unspecified; G50.0 Trigeminal neuralgia; K21.9 Gastro-esophageal reflux disease without esophagitis; Z79.899 Other long term (current) drug therapy; Z87.891 Personal history of nicotine dependence
CPT/HCPCS: 45378; J2704

== ENCOUNTER → 2024-07-27 | Outpatient (CLI) | payer MEDICARE ==
[2024-07-27 09:30] VITALS: BP 110/67; PULSE 75; RESP 16
--- NOTE | 2024-07-27 16:19 | P.PAINPG ---
Objective - Vital Signs Vital signs: Intake & Output 07/26/24 07/27/24 07/27/24 18:59 06:59 18:59 Weight 104.326 kg PQRS Measure Charge Sheet Comment: HISTORY OF PRESENT ILLNESS: A 79 yr old male w at side as a referral from Dr Garcias presents today w severe and chronic LBP > 1 yr secondary to post laminectomy syndrome for evaluation. Pt states pain level is provoked at 8 /10 in intensity, constant, localized in the lumbar spine, predominantly axial, achy in character w occasional shooting pain towards the BLEs. Pain is provoked by walking for periods > 10 min. Pain is alleviated by PT x 6 wks which ended in Spring 2023, physician guided home stretches daily since Spring 2023, heat, ice, medications (ASA, Excedrin), repositioning and rest . PMH: OA, CAD, GERD, Hyperlipidemia, HTN, PA, BPH, Trigeminal Neuralgia PSH: Lumbar Fusion, Cervical Surgery, Cholecystectomy, Coronary Bypass/CABG w Stent (2013), R Ankle Surgery, Colonoscopy (2023) SH: Former tobacco user, No ETOH use, No illicit drug use FH: Mo- Colon CA All: See list Meds: See list REVIEW OF ORGAN SYSTEMS: CONSTITUTIONAL: No fevers or chills. No recent weight loss. NEUROLOGICAL: + numbness and tingling along the distal extremities. No seizure disorders or headaches. MUSCULOSKELETAL: + pain PSYCHIATRIC: Denies current depression or suicidal thoughts. Physical Examinations : Constitutional : Cooperative , not in acute distress . Neurologic : Cranial nerve II to XII intact. No focal neurological deficits. Psychiatric : alert & oriented x 3. Matching mood & appropriate affect. Judgment & insight intact. Musculoskeletal : Cervical Spine Motor strength in the deltoid and biceps: Normal right side. Normal Left side Motor strength biceps and the wrist extensors: Normal right side . Normal left side Motor strength in the triceps muscle: Normal right side. Normal left side Deep tendon reflexes: Normal at the biceps. Normal at Brachioradialis. Normal at triceps Vertebral body tenderness to deep palpation over Cervical facet loading test: positive bilaterally Spurling test: positive bilaterally Neck distraction test: positive bilaterally Jarod sign: positive bilaterally Lumbar spine Motor strength lower extremities ,thigh and legs 5/5 Right side , 5/5 Left side Deep tendon reflexes : Normal Knee Jerk. Normal Ankle Jerk Vertebral body tenderness over Sam Test positive Lumbar facet Loading Test: positive Right / positive Left L4-L5, L5-S1 Range of motion of the lumbar spine Flexion 30 degrees, extension 10 degrees Straight Leg Raise test: Left/ Right positive at degrees Harvinder test: positive right / positive left. Severe tenderness over the Sacroiliac joint on the Right / Left sides Gaenslen test: positive bilaterally Seated flexion test: positive bilaterally. Sacral spine : Severe tenderness over the Sacroiliac joint: right side / left side Range of motion: Flexion of the lumbar spine <60 degrees Range of motion: Extension of the lumbar spine <20 degrees Gaenslen's Test positive Harvinder test: positive right side / left side Thigh Thrust Test Sacral Thrust Test Imaging: CT non contrast lumbar spine from 11/05/23 reviewed Assessment/ Plan : L2-L4 Fixation, L2-L3 Discectomy w posterolateral Fusion Recommendation of IRMA MBAlin L4-L5/ L5-S1 #1. Risks, benefits of procedure discussed and patient verbalized understanding. Admits to anti- coagulant use or medical history of diabetes. Protocol for discontinuation/ continuation of medications ady procedure discussed. Minimal anesthesia provided, if clinically indicated, consisting of Versed and Fentanyl. All questions answered. I have spent greater than 30 minutes on patient care today. Dr Rubio was available by phone for the evaluation of this patient. The time was used to review the medical records including relevant urine studies and Prescription history (MAPs), review of the available imaging, evaluation and examination of the patient, coordination of care with the medical staff and if applicable referring physicians, as well as creation of the medical record Home Medications: Ambulatory Orders Aspirin [Adult Low Dose Aspirin EC] 81 mg PO DAILY 10/31/22 Omeprazole 20 mg PO QAM 10/31/22 amLODIPine [Norvasc] 2.5 mg PO QAM 10/31/22 carBAMazepine 200 mg PO BID 10/31/22 tiZANidine [Zanaflex] 4 mg PO HS 10/31/22 Citalopram Hydrobromide [CeleXA] 40 mg PO QAM 10/29/23 Metoprolol Succinate (ER) [Toprol XL] 100 mg PO QAM 10/29/23 Tamsulosin [Flomax] 0.4 mg PO QAM 10/29/23 Simvastatin 40 mg PO HS 07/15/24 lisinopriL [Prinivil] 20 mg PO BID 07/15/24 Controlled Substance Measures - Controlled Substance Measures Is patient prescribed a controlled substance at discharge?: No
== END ==
LOC: PNWHC3 08:58
PROVIDERS: ATTEND Specialist
DX: M47.892 Other spondylosis, cervical region (principal); M43.26 Fusion of spine, lumbar region; M96.1 Postlaminectomy syndrome, not elsewhere classified
CPT/HCPCS: 99211

== ENCOUNTER 2024-09-01 11:32 | Day surgery (SDC) | payer MEDICARE ==
[2024-08-31 12:28] VITALS: BMI 34.0
[~2024-09-01 11:32] MED LIST changes: +LACTATED RINGERS 1,000 ML IV SCH; -LIDOCAINE 1% (10MG/ML) FOR IV START INTRADERMA PRN
[2024-09-01] MEDS: SODIUM CHLORIDE 0.9% 250 ML IV ONE (11:43)
[2024-09-01 11:48] VITALS: TEMP 97.2
[2024-09-01] MEDS ORDERED: ROPIVACAINE 5MG/ML 20ML VIAL ONE (12:15)
[2024-09-01] MEDS ORDERED: MIDAZOLAM 2 MG/2 ML VIAL ONE (12:15)
[2024-09-01] MEDS ORDERED: fentaNYL (PF) 50 MCG/ML 2 ML AMP ONE (12:15)
--- NOTE | 2024-09-01 12:44 | P.PCN ---
Description of Procedure: Preprocedure diagnosis. 1. Lumbar spondylosis with facet joint arthropathy without myelopathy. 2. Lumbar degenerative disc disease. Postprocedure diagnosis. As above. Procedure done. Bilateral diagnostic block with local anesthetics at L4, L5 medial branch to target the facet joint L5-S1 with fluoroscopic guidance (fluoroscopy images are available in the radiology department) . Anesthesia. Moderate sedation with intravenous Versed 2 mg and 100 mcg fentanyl and local infiltration with local anesthetics. In OR, continuous pulse ox, EKG, blood pressure and verbal communication was maintained. Time. Blood loss. Minimal. Indication. The patient has low back pain secondary to lumbar facet joint arthropathy. Discussed the procedure and alternative and complications which includes infection, bleeding, nerve damage, paralysis ,aggravation of pain. Patient understands and all questions were answered. Patient iunderstands that if any pain relief occurs it will last for a few hours to a few days maximum. Procedure description. After getting consent patient was taken in the OR in prone position. Back prepped with chlorhexidine and draped in sterile fashion. After injecting 5 mL of plain 1% lidocaine subcutaneously, a 22-gauge spinal needle was introduced under tunnel vision of the fluoroscope at the junction of the superior articular process with RIGHT ala of the sacrum. With slight oblique fluoroscope, after injecting 5 mL of plain 1% lidocaine subcutaneously, a 22-gauge spinal needle was introduced under tunnel vision of the fluoroscope at the junction of the superior articular process with RIGHT L5 transverse process, Could not visualize right or left L3 medial branch location that is junction of superior articular process with L4 transverse process because of extensive previous surgery and hardware.. Negative CSF, negative blood, negative paresthesia. After needle position confirmation by AP and crosstable lateral view, after negative aspiration, half milliliters of solution were injected at each point. Total 1 mL of solution was injected on the right side which consists of 0.5% ropivacaine. In exactly same way, LEFT sided injections were done at the following 2 points. Junction of the superior articular process with left ala of the sacrum, junction of the superior articular process with the left L5 transverse process using 0.5 mL of solution at each point. Total 1 mL of solution was injected on the left side which consists of 0.5% ropivacaine . Spinal needles were taken out and bandages were applied. Disposition. Patient tolerated the procedure well. No complication. Discharged home in stable condition
[2024-09-01] MEDS: IV FLUID CONTINUATION 1,000 ML IV ONE (12:45)
[2024-09-01 12:49] VITALS: RESP 16
--- NOTE | 2024-09-01 12:58 | FL ---
EXAMINATION TYPE: FL guided pain mgmt statistic DATE OF EXAM: 09/01/2024 CLINICAL HISTORY: Low back pain. TECHNIQUE: Fluoroscopy. COMPARISON: None. FINDINGS: Fluoroscopic guidance was provided during pain relief procedure performed by Dr. Bingham . A total of 81 seconds of fluoroscopic time was utilized during the procedure and 4 spot images are ac quired. Images acquired shows needle localization at multiple levels in the lower lumbar spine. Postsurgical change is partially imaged. IMPRESSION: As Above. TOTAL DAP = [id number] mGy x m2. [facility], , 09/01/2024 12:56 PM
[2024-09-01 13:06] VITALS: BP 115/54; PULSE 56
== END 2024-09-01 13:30 | disposition home or self-care (01) ==
LOC: ORPAIN 11:32
PROVIDERS: ATTEND Pain Medicine Interventional Pain Medicine
DX: M47.816 Spondylosis without myelopathy or radiculopathy, lumbar region (principal); M51.369 Other intervertebral disc degeneration, lumbar region without mention of lumbar back pain or lower extremity pain; Z79.82 Long term (current) use of aspirin; Z79.899 Other long term (current) drug therapy; Z79.1 Long term (current) use of non-steroidal anti-inflammatories (NSAID)
CPT/HCPCS: 64493; 99152; 64494 ×2; J2250; J3010; J2795

== ENCOUNTER → 2024-09-23 | Outpatient (CLI) | payer MEDICARE ==
[2024-09-23 09:08] VITALS: BP 138/61; PULSE 64; RESP 15
--- NOTE | 2024-09-23 15:44 | P.PAINPG ---
PQRS Measure Charge Sheet Comment: HISTORY OF PRESENT ILLNESS: A 79 yr old male w at side presents today w severe and chronic LBP > 1 yr secondary to post laminectomy syndrome for evaluation s/p BL MBB L4-L5/ L5-S1 #1. Pt states he experienced 100% pain relief x 12 hrs s/p procedure. Pt states pain level is provoked at 8 /10 in intensity, constant, localized in the lumbar spine, predominantly axial, achy in character w occasional shooting pain towards the BLEs. Pain is provoked by walking for periods > 10 min. Pain is alleviated by PT x 6 wks which ended in Spring 2023, physician guided home stretches daily since Spring 2023, heat, ice, medications, repositioning and rest . Interventional procedures include BL MBB L3-L5 x1 Medications include ASA, Excedrin REVIEW OF ORGAN SYSTEMS: CONSTITUTIONAL: No fevers or chills. No recent weight loss. NEUROLOGICAL: + numbness and tingling along the distal extremities. No seizure disorders or headaches. MUSCULOSKELETAL: + pain PSYCHIATRIC: Denies current depression or suicidal thoughts. Physical Examinations : Constitutional : Cooperative , not in acute distress . Neurologic : Cranial nerve II to XII intact. No focal neurological deficits. Psychiatric : alert & oriented x 3. Matching mood & appropriate affect. Judgment & insight intact. Musculoskeletal : Cervical Spine Motor strength in the deltoid and biceps: Normal right side. Normal Left side Motor strength biceps and the wrist extensors: Normal right side . Normal left side Motor strength in the triceps muscle: Normal right side. Normal left side Deep tendon reflexes: Normal at the biceps. Normal at Brachioradialis. Normal at triceps Vertebral body tenderness to deep palpation over Cervical facet loading test: positive bilaterally Spurling test: positive bilaterally Neck distraction test: positive bilaterally Jarod sign: positive bilaterally Lumbar spine Motor strength lower extremities ,thigh and legs 5/5 Right side , 5/5 Left side Deep tendon reflexes : Normal Knee Jerk. Normal Ankle Jerk Vertebral body tenderness over Sam Test positive Lumbar facet Loading Test: positive Right / positive Left L4-L5, L5-S1 Range of motion of the lumbar spine Flexion 30 degrees, extension 10 degrees Straight Leg Raise test: Left/ Right positive at degrees Harvinder test: positive right / positive left. Severe tenderness over the Sacroiliac joint on the Right / Left sides Gaenslen test: positive bilaterally Seated flexion test: positive bilaterally. Sacral spine : Severe tenderness over the Sacroiliac joint: right side / left side Range of motion: Flexion of the lumbar spine <60 degrees Range of motion: Extension of the lumbar spine <20 degrees Gaenslen's Test positive Harvinder test: positive right side / left side Thigh Thrust Test Sacral Thrust Test Imaging: CT non contrast lumbar spine from 11/05/23 reviewed Assessment/ Plan : L2-L4 Fixation, L2-L3 Discectomy w posterolateral Fusion Recommendation of BL MBB L4-L5/ L5-S1 #2. Risks, benefits of procedure discussed and patient verbalized understanding. Admits to anti- coagulant use or medical history of diabetes. Protocol for discontinuation/ continuation of medications ady procedure discussed. Minimal anesthesia provided, if clinically indicated, consisting of Versed and Fentanyl. Opiate/ narcotic agreement signed 09/23/24. [place] 5/325gm #60 w 1 RF. Use, side effects, adverse reactions, safe storage discussed. All questions answered. I have spent greater than 30 minutes on patient care today. Dr Rubio was available by phone for the evaluation of this patient. The time was used to review the medical records including relevant urine studies and Prescription history (MAPs), review of the available imaging, evaluation and examination of the patient, coordination of care with the medical staff and if applicable referring physicians, as well as creation of the medical record - Pain Location Lower Back Non-Pharmacological Interventions: Position/Reposition PQRS Narrative: Hx Alcohol Use (MH) No Home Medications: Ambulatory Orders Aspirin [Adult Low Dose Aspirin EC] 81 mg PO DAILY 10/31/22 Omeprazole 20 mg PO QAM 10/31/22 amLODIPine [Norvasc] 2.5 mg PO QAM 10/31/22 carBAMazepine 200 mg PO HS 10/31/22 tiZANidine [Zanaflex] 4 mg PO HS 10/31/22 Citalopram Hydrobromide [CeleXA] 40 mg PO QAM 10/29/23 Metoprolol Succinate (ER) [Toprol XL] 100 mg PO QAM 10/29/23 Tamsulosin [Flomax] 0.4 mg PO QAM 10/29/23 Simvastatin 40 mg PO HS 07/15/24 lisinopriL [Prinivil] 40 mg PO QAM 07/15/24 HYDROcodone/APAP 5-325MG [[place] 5-325] 1 tab PO BID PRN 30 Days #60 tab 09/23/24 HYDROcodone/APAP 5-325MG [[place] 5-325] 1 tab PO BID PRN 30 Days #60 tab 09/23/24 Controlled Substance Measures - Controlled Substance Measures Is patient prescribed a controlled substance at discharge?: Yes When asked, does pt state using other controlled substances?: No If prescribed controlled substance>3 days was MAPS reviewed?: Yes If Rx opioid, was Start Talking consent form obtained?: Yes Was information provided regarding opioid addiction?: Yes
== END ==
LOC: PNWHC3 08:41
PROVIDERS: ATTEND Specialist
DX: M47.816 Spondylosis without myelopathy or radiculopathy, lumbar region (principal); M43.26 Fusion of spine, lumbar region; Z98.890 Other specified postprocedural states
CPT/HCPCS: 99212

== ENCOUNTER 2024-11-10 09:46 | Day surgery (SDC) | payer MEDICARE ==
[2024-11-09 09:52] VITALS: BMI 34.0
[2024-11-10 10:11] VITALS: TEMP 97
[2024-11-10] MEDS: IV FLUID CONTINUATION 1,000 ML IV ONE (10:21)
[2024-11-10] MEDS: LACTATED RINGERS 1,000 ML IV SCH (10:22)
[2024-11-10] MEDS ORDERED: MIDAZOLAM 2 MG/2 ML VIAL ONE (10:50)
[2024-11-10] MEDS ORDERED: ROPIVACAINE 5MG/ML 20ML VIAL ONE (10:50)
[2024-11-10] MEDS ORDERED: fentaNYL (PF) 50 MCG/ML 2 ML AMP ONE (10:50)
--- NOTE | 2024-11-10 11:02 | P.PCN ---
Date of Procedure: 11/10/24 Procedure(s) Performed: PREOPERATIVE DIAGNOSIS : 1- Lumbar spondylosis with Facet Arthropathy without myelopathy . 2- Lumber degenerative disc disease POSTOPERATIVE DIAGNOSIS: 1- Lumbar spondylosis with Facet Arthropathy without myelopathy . 2- Lumber degenerative disc disease PROCEDURE: Diagnostic bilateral L3 , L4 , and L5 medial branch block under fluoroscopy guidance(fluoroscopy images available in the radiology Department ) ( To target the facet joint between Bilateral L4-5 , and L5- S1 )#2nd ANESTHESIA: moderate sedation with intravenous Versed 1 mg ,and Fentanyl 100 mcg.( sedation start time at10:50 , Ended at 10:59 ) EBL: Minimal COMPLICATION: None PROCEDURE INDICATION: Chronic low back pain secondary to Facet arthropathy unresponsive to conservative treatment. PROCEDURE DESCRIPTION: the patient was seen and identified in the preop holding area , risks and benefits and possible complications of the procedure and alternative were discussed with the patient, and the patient agreed to proceed with the procedure and signed the consent and vital signs monitored during the procedure and fluoroscopy was used to maximize the benefit and accuracy of the needle placement, and sedation was given to decrease patient anxiety, patient was taken to the procedure room and placed in prone position vital signs monitored in the back prepped with chlorhexidine X3 then under strict sterile technique using a right oblique fluoroscopy ,the junction of the transverse process and the superior articulating process of the right L3 , L4 , and L5 vertebra which corresponding to the fluoroscopy image of the eye of the Grant dog on the block side for the medial branches and subsequently , after local infiltration of skin and subcu tissuies with Ropivacaine 0.5 % , one mL at each level ,then 22-gauge Quincke-type needles , 3 needle was used , each one of them placed at the junction of the base of the transverse process and the superior articular process at the appropriate level, and the needle was advanced until the periosteum contacted, needle placement confirmed with AP oblique and lateral view and after appropriate needle placement confirmed, and after negative aspiration for heme and CSF and there was no paresthesia 1-1/2 mL of Ropivacaine 0.5% , then half mL injected at each level after negative aspiration the needle subsequently removed and the same procedure repeated for the left side at left side at L3 , L4 and L5 levels. At the end of the procedure and the needles removed and a bandage applied after the skin was cleaned the cleaning solution patient taken to recovery room in stable condition and monitors in the recovery room for 20-30 minutes and discharged home in stable condition after discharge criteria met and patient will follow up with the pain clinic in 2-4 weeks
[2024-11-10] MEDS: IV FLUID CONTINUATION 700 ML IV ONE (11:07)
--- NOTE | 2024-11-10 11:11 | FL ---
EXAMINATION TYPE: FL guided pain mgmt statistic DATE OF EXAM: 11/10/2024 CLINICAL HISTORY: Low back pain. TECHNIQUE: Fluoroscopy. COMPARISON: None. FINDINGS: Fluoroscopic guidance was provided during pain relief procedure performed by Dr. Rubio . A total of 6 seconds of fluoroscopic time was utilized during the procedure and two spot images ar e acquired. Images acquired shows needle localization lumbar spine. IMPRESSION: As Above. [facility], , 11/10/2024 11:08 AM
[2024-11-10 11:27] VITALS: BP 127/74; PULSE 71; RESP 18
== END 2024-11-10 11:41 | disposition home or self-care (01) ==
LOC: ORPAIN 09:46
PROVIDERS: ATTEND Specialist
DX: M47.816 Spondylosis without myelopathy or radiculopathy, lumbar region (principal); M51.369 Other intervertebral disc degeneration, lumbar region without mention of lumbar back pain or lower extremity pain
CPT/HCPCS: 64493; 64494; J2250; J3010; J2795

== ENCOUNTER → 2024-11-19 | Outpatient (CLI) | payer MEDICARE ==
[2024-11-19 11:07] VITALS: BP 141/65; PULSE 67; RESP 19; TEMP 96.8
--- NOTE | 2024-11-19 14:25 | P.PAINPG ---
PQRS Measure Charge Sheet Comment: HISTORY OF PRESENT ILLNESS: A 79 yr old male w at side presents today w severe and chronic LBP > 1 yr secondary to post laminectomy syndrome for evaluation s/p BL MBB L4-L5/ L5-S1 #2. Pt states he experienced 100% pain relief x 8 days s/p procedure. Pt states pain level is provoked at 8 /10 in intensity, constant, localized in the lumbar spine, predominantly axial, achy in character w occasional shooting pain towards the BLEs. Pain is provoked by walking for periods > 10 min. Pain is alleviated by PT x 6 wks which ended in Spring 2023, physician guided home stretches daily since Spring 2023, heat, ice, medications, repositioning and rest . Interventional procedures include BL MBB L3-L5 x1 Medications include ASA, Excedrin REVIEW OF ORGAN SYSTEMS: CONSTITUTIONAL: No fevers or chills. No recent weight loss. NEUROLOGICAL: + numbness and tingling along the distal extremities. No seizure disorders or headaches. MUSCULOSKELETAL: + pain PSYCHIATRIC: Denies current depression or suicidal thoughts. Physical Examinations : Constitutional : Cooperative , not in acute distress . Neurologic : Cranial nerve II to XII intact. No focal neurological deficits. Psychiatric : alert & oriented x 3. Matching mood & appropriate affect. Judgment & insight intact. Musculoskeletal : Cervical Spine Motor strength in the deltoid and biceps: Normal right side. Normal Left side Motor strength biceps and the wrist extensors: Normal right side . Normal left side Motor strength in the triceps muscle: Normal right side. Normal left side Deep tendon reflexes: Normal at the biceps. Normal at Brachioradialis. Normal at triceps Vertebral body tenderness to deep palpation over Cervical facet loading test: positive bilaterally Spurling test: positive bilaterally Neck distraction test: positive bilaterally Jarod sign: positive bilaterally Lumbar spine Motor strength lower extremities ,thigh and legs 5/5 Right side , 5/5 Left side Deep tendon reflexes : Normal Knee Jerk. Normal Ankle Jerk Vertebral body tenderness over Sam Test positive Lumbar facet Loading Test: positive Right / positive Left L4-L5, L5-S1 Range of motion of the lumbar spine Flexion 30 degrees, extension 10 degrees Straight Leg Raise test: Left/ Right positive at degrees Harvinder test: positive right / positive left. Severe tenderness over the Sacroiliac joint on the Right / Left sides Gaenslen test: positive bilaterally Seated flexion test: positive bilaterally. Sacral spine : Severe tenderness over the Sacroiliac joint: right side / left side Range of motion: Flexion of the lumbar spine <60 degrees Range of motion: Extension of the lumbar spine <20 degrees Gaenslen's Test positive Harvinder test: positive right side / left side Thigh Thrust Test Sacral Thrust Test Imaging: CT non contrast lumbar spine from 11/05/23 reviewed Assessment/ Plan : L2-L4 Fixation, L2-L3 Discectomy w posterolateral Fusion Recommendation of BL RFA L4-L5/ L5-S1. Risks, benefits of procedure discussed and patient verbalized understanding. Admits to anti- coagulant use or medical history of diabetes. Protocol for discontinuation/ continuation of medications ady procedure discussed. Minimal anesthesia provided, if clinically indicated, consisting of Versed and Fentanyl. Opiate/ narcotic agreement signed 09/23/24. [place] 5/325gm #60 currently at [place], add 1 RF. Use, side effects, adverse reactions, safe storage discussed. All questions answered. I have spent greater than 30 minutes on patient care today. Dr Rubio was available by phone for the evaluation of this patient. The time was used to review the medical records including relevant urine studies and Prescription history (MAPs), review of the available imaging, evaluation and examination of the patient, coordination of care with the medical staff and if applicable referring physicians, as well as creation of the medical record - Pain Location Lower Back Pharmacological Interventions: Block, Medication PQRS Narrative: Hx Alcohol Use (MH) No Home Medications: Ambulatory Orders Aspirin [Adult Low Dose Aspirin EC] 81 mg PO DAILY 10/31/22 Omeprazole 20 mg PO QAM 10/31/22 amLODIPine [Norvasc] 2.5 mg PO QAM 10/31/22 carBAMazepine 200 mg PO HS 10/31/22 tiZANidine [Zanaflex] 4 mg PO HS 10/31/22 Citalopram Hydrobromide [CeleXA] 40 mg PO QAM 10/29/23 Metoprolol Succinate (ER) [Toprol XL] 100 mg PO QAM 10/29/23 Tamsulosin [Flomax] 0.4 mg PO QAM 10/29/23 Simvastatin 40 mg PO HS 07/15/24 lisinopriL [Zestril] 20 mg PO DAILY 11/09/24 HYDROcodone/APAP 5-325MG [[place] 5-325] 1 tab PO BID PRN 30 Days #60 tab 11/19/24 Controlled Substance Measures - Controlled Substance Measures Is patient prescribed a controlled substance at discharge?: Yes When asked, does pt state using other controlled substances?: No If prescribed controlled substance>3 days was MAPS reviewed?: Yes
== END ==
LOC: PNWHC3 09:53
PROVIDERS: ATTEND Specialist
DX: M96.1 Postlaminectomy syndrome, not elsewhere classified (principal); M43.26 Fusion of spine, lumbar region
CPT/HCPCS: 99211

== ENCOUNTER 2024-12-11 11:12 | Day surgery (SDC) | payer MEDICARE ==
[2024-12-11 12:34] VITALS: TEMP 97.4
[2024-12-11] MEDS: IV FLUID CONTINUATION 1,000 ML IV ONE ×2 (12:41→14:28)
[2024-12-11] MEDS: LACTATED RINGERS 1,000 ML IV SCH (12:41)
[2024-12-11] MEDS ORDERED: ROPIVACAINE 5MG/ML 20ML VIAL ONE (13:38)
[2024-12-11] MEDS ORDERED: MIDAZOLAM 2 MG/2 ML VIAL ONE (13:38)
[2024-12-11] MEDS ORDERED: fentaNYL (PF) 50 MCG/ML 2 ML AMP ONE (13:38)
--- NOTE | 2024-12-11 14:24 | P.PCN ---
Description of Procedure: Preprocedure diagnosis. 1. Lumbar spondylosis with facet joint arthropathy without myelopathy. 2. Lumbar degenerative disc disease. Procedure diagnosis. 1. Lumbar spondylosis with facet joint arthropathy without myelopathy. Space 2. Lumbar degenerative disc disease. Procedure.Bilateral radiofrequency thermocoagulation L3, L4 and L5 medial branch, with fluoroscopic guidance (fluoroscopy images are available in the radiology department) (to Denervate the facet joint at bilateral L4- 5 and L5-S1 levels) Anesthesia. Moderate sedation with intravenous Versed 2 mg and fentanyl 100 g and local infiltration with Lidocaine. Continuous pulse OX,BP,EKG and verbal communication was maintained with patient. Time. Start 1338. [id number] . EBL minimal. Procedure indication. The patient with low back pain secondary to lumbar facet arthropathy who he had more than 50% relief of her pain with previous diagnostic lumbar medial branch block with local anesthetics.The patient was seen and identified in the preoperative area. Risks: Benefits, complications, including but not limited to risk of infection, bleeding, ALLERGIC reaction to the medications and no complete pain relief and alternatives were discussed with the patient, the patient admitted to proceed with the procedure and signed the consent. Procedure description/technique. Patient was taken to the OR and timeout was completed. The patient was placed in prone position on the procedure table. The lumbar area was prepped and draped in the usual sterile fashion. After injecting 5 ml of 1% Lidocaine subcutaneously,using AP and then oblique, lateral view of fluoroscopy, 18-gauge 100 mm radiofrequency cannula with a 10 mm active tip was advanced and guided by fluoroscopy at the junction of supirior articular process with RIGHT ala of the sacrum, transverse process of L4&L5. Each site then underwent positive sensory testing with 50 Hz and 0-1 V and negative motor testing at 2.5 Hz and 0-3 V with local stimulation but no radicular symptoms down the leg. Thereafter each sites underwent radiofrequency thermocoagulation at 80C for 90 seconds after injecting 1 mL of preservative- free 0.5% ropivacaine. Repeat radiofrequency ablation was done at each points after rotating the needle 180 with same setting. This same procedure was repeated twice on the LEFT side at the junction of superior articular process with ala of sacrum,transverse process of L4, L5 with the same settings after positive sensory,negative motor stimulation and inf iltration of 1.0 ml 5% Ropivacaine at each site . RF needles were taken out. At the end of the procedure the skin was cleansed and Band-Aids were applied. Disposition patient tolerated the procedure well. No complication. She was placed in supine position and transferred to the recovery area in stable condition for observation and was discharged home from recovery room after meeting discharge criteria. Discharge instructions given to the patient by the staff. The patient were examined prior to discharge the patient will schedule a follow-up in the clinic in 2-4 weeks.
--- NOTE | 2024-12-11 14:28 | FL ---
EXAMINATION TYPE: FL guided pain mgmt statistic Intraoperative/procedural fluoroscopic services were provided. CLINICAL INDICATION:Male, 79 years old with history of [place] Lumbar Rad Freq; , [facility] FINDINGS: Fluoroscopic images demonstrating bilateral lumbar RAD frequency. Partial visualization of lumbar fus ion hardware from L2 through L4 with bilateral pedicle screws and rods. No radiographic evidence for complication. Total fluoroscopy time is 69.3 seconds. DAP: 0.58516 mGym2 Please see the operative/procedural note for further details. [facility], , 12/11/2024 2:26 PM
[2024-12-11 14:37] VITALS: RESP 18
[2024-12-11 14:52] VITALS: BP 114/60; PULSE 60
== END 2024-12-11 15:00 ==
LOC: ORPAIN 11:12
PROVIDERS: ATTEND Pain Medicine Interventional Pain Medicine
DX: M47.816 Spondylosis without myelopathy or radiculopathy, lumbar region (principal); M51.369 Other intervertebral disc degeneration, lumbar region without mention of lumbar back pain or lower extremity pain
CPT/HCPCS: 64635; 64636; J2250; J3010; J2795; 99152; 99153

== ENCOUNTER → 2025-01-11 | Outpatient (CLI) | payer MEDICARE ==
[2025-01-11 09:19] VITALS: BP 139/91; PULSE 68; RESP 16; TEMP 97.1
--- NOTE | 2025-01-13 10:51 | P.PAINPG ---
PQRS Measure Charge Sheet Comment: HISTORY OF PRESENT ILLNESS: A 79 yr old male w at side presents today w severe and chronic LBP > 1 yr secondary to L2-L4 Fixation, L2-L3 Discectomy w Posterolateral Fusion for evaluation s/p BL RFA L4-L5/ L5-S1. Pt states he experienced 100% pain relief s/p procedure. Pt states pain level is provoked at 8 /10 in intensity, constant, localized in the lumbar spine, predominantly axial, tight in character w occasional shooting pain towards the buttocks. Pain is provoked by walking for periods > 10 min. Pain is alleviated by PT x 6 wks which ended in Spring 2023, physician guided home stretches daily since Spring 2023, heat, ice, medications, repositioning and rest . Interventional procedures include BL RFA L3-L5 (12/11/24) Medications include ASA, Excedrin REVIEW OF ORGAN SYSTEMS: CONSTITUTIONAL: No fevers or chills. No recent weight loss. NEUROLOGICAL: + numbness and tingling along the distal extremities. No seizure disorders or headaches. MUSCULOSKELETAL: + pain PSYCHIATRIC: Denies current depression or suicidal thoughts. Physical Examinations : Constitutional : Cooperative , not in acute distress . Neurologic : Cranial nerve II to XII intact. No focal neurological deficits. Psychiatric : alert & oriented x 3. Matching mood & appropriate affect. Judgment & insight intact. Musculoskeletal : Cervical Spine Motor strength in the deltoid and biceps: Normal right side. Normal Left side Motor strength biceps and the wrist extensors: Normal right side . Normal left side Motor strength in the triceps muscle: Normal right side. Normal left side Deep tendon reflexes: Normal at the biceps. Normal at Brachioradialis. Normal at triceps Vertebral body tenderness to deep palpation over Cervical facet loading test: positive bilaterally Spurling test: positive bilaterally Neck distraction test: positive bilaterally Jarod sign: positive bilaterally Lumbar spine Motor strength lower extremities ,thigh and legs 5/5 Right side , 5/5 Left side Deep tendon reflexes : Normal Knee Jerk. Normal Ankle Jerk Vertebral body tenderness over Sam Test positive Lumbar facet Loading Test: positive Right / positive Left L5-S1 Range of motion of the lumbar spine Flexion 30 degrees, extension 10 degrees Straight Leg Raise test: Left/ Right positive at degrees Harvinder test: positive right / positive left. Severe tenderness over the Sacroiliac joint on the Right / Left sides Gaenslen test: positive bilaterally Seated flexion test: positive bilaterally. Sacral spine : Severe tenderness over the Sacroiliac joint: right side / left side Range of motion: Flexion of the lumbar spine <60 degrees Range of motion: Extension of the lumbar spine <20 degrees Gaenslen's Test positive Harvinder test: positive right side / left side Thigh Thrust Test Sacral Thrust Test Imaging: CT non contrast lumbar spine from 11/05/23 reviewed Assessment/ Plan : L2-L4 Fixation, L2-L3 Discectomy w posterolateral Fusion Recommendation of BL iliolumbar ligament #1. Risks, benefits of procedure discussed and patient verbalized understanding. Admits to anti- coagulant use or medical history of diabetes. Protocol for discontinuation/ continuation of medications ady procedure discussed. Minimal anesthesia provided, if clinically indicated, consisting of Versed and Fentanyl. Opiate/ narcotic agreement signed 09/23/24 for [place] 5/325gm #60 which is ineffective. Give short supply of Percocet 7.5/325mg #18 NR to discontinue [place] while in use. Use, side effects, adverse reactions, safe storage discussed. All questions answered. I have spent greater than 30 minutes on patient care today. Dr Rubio was available by phone for the evaluation of this patient. The time was used to review the medical records including relevant urine studies and Prescription history (MAPs), review of the available imaging, evaluation and examination of the patient, coordination of care with the medical staff and if applicable referring physicians, as well as creation of the medical record - Pain Location Bilateral Lower Back Non-Pharmacological Interventions: Heat, Ice, Inactivity, Physical Therapy, Position/Reposition, Relaxation Technique, Sitting Pharmacological Interventions: Block, Epidural, PRN Medication, Scheduled Medication, Topical Medication PQRS Narrative: Hx Alcohol Use (MH) No Home Medications: Ambulatory Orders Aspirin [Adult Low Dose Aspirin EC] 81 mg PO DAILY 10/31/22 Omeprazole 20 mg PO QAM 10/31/22 amLODIPine [Norvasc] 2.5 mg PO QAM 10/31/22 carBAMazepine 200 mg PO HS 10/31/22 tiZANidine [Zanaflex] 4 mg PO HS 10/31/22 Citalopram Hydrobromide [CeleXA] 40 mg PO QAM 10/29/23 Metoprolol Succinate (ER) [Toprol XL] 100 mg PO QAM 10/29/23 Tamsulosin [Flomax] 0.4 mg PO QAM 10/29/23 Simvastatin 40 mg PO HS 07/15/24 lisinopriL [Zestril] 20 mg PO DAILY 11/09/24 HYDROcodone/APAP 5-325MG [[place] 5-325] 1 tab PO BID PRN 30 Days #60 tab 11/19/24 oxyCODONE HCL/ACETAMINOPHEN [Percocet 7.5-325 mg] 1 tab PO Q4HR PRN 3 Days #18 tab 01/11/25 Controlled Substance Measures - Controlled Substance Measures Is patient prescribed a controlled substance at discharge?: Yes When asked, does pt state using other controlled substances?: Yes If prescribed controlled substance>3 days was MAPS reviewed?: Prescribed <3 Days
== END ==
LOC: PNWHC3 08:41
PROVIDERS: ATTEND Specialist
DX: M54.50 Low back pain, unspecified (principal); G89.29 Other chronic pain; Z98.1 Arthrodesis status; Z98.890 Other specified postprocedural states
CPT/HCPCS: 99211

== ENCOUNTER 2025-02-05 10:20 | Day surgery (SDC) | payer MEDICARE ==
[2025-02-03 15:27] VITALS: BMI 34.8
[2025-02-05 11:26] VITALS: TEMP 97
[2025-02-05] MEDS ORDERED: methylPREDNISolone ACETATE 80 MG/ML 1 ML VIAL ONE (12:32)
[2025-02-05] MEDS ORDERED: ROPIVACAINE 5 MG/ML 30 ML VIAL ONE (12:32)
--- NOTE | 2025-02-05 12:51 | P.PCN ---
Description of Procedure: Preprocedure diagnosis. Bilateral iliolumbar ligament pain. Postprocedure diagnosis. As above. Procedure done. BILATERAL iliolumbar ligament injection with local anesthetics and steroid under fluoroscopic guidance. Anesthesia. Local infiltration of local anesthetics. Blood loss. None. Indication. Discussed the procedure and possible complications which may include infection bleeding nerve damage paralyzes aggravation of pain all of which could be permanent. Patient understands and QUESTIONS were answered. Procedure note. After getting consent patient was taken to OR in prone position. Back prepped with chlorhexidine and draped in sterile fashion. After injecting 5 mL of plain 1% lidocaine subcutaneously a 22-gauge spinal needle was introduced under tunnel vision of the fluoroscope on the RIGHT iliolumbar ligament area just below the right L5 transverse process. The needle position confirmation by AP and crosstable lateral view of the fluoroscope, after negative aspiration, 1.5 mL solution was injected which consists of 1 mL of 40 mg Depo-Medrol mixed with 0.5 ml of 0.5% Ropivacaine. In exactly the same way LEFT iliolumbar ligament injected with same amount of solution. [place] were taken out. Disposition. Patient tolerated the procedure well. No complication. Discharged home in stable condition.
[2025-02-05 12:57] VITALS: BP 147/72; PULSE 64; RESP 16
--- NOTE | 2025-02-05 14:08 | FL ---
EXAMINATION TYPE: FL guided pain mgmt statistic DATE OF EXAM: 02/05/2025 1:26 PM COMPARISON: Pre Operative Images if available both CT/MRI or plain film CLINICAL INDICATION: Male, 79 years old with history of PAIN; TECHNIQUE: FL guided pain mgmt statistic, multiple fluoroscopic images provided for procedure. DAP: 0.85419 mGym2 Gycm2 uGym2 cGycm2 or equivalent. FINDINGS: Fluoroscopic images during injection for pain management demonstrate multilevel degeneration changes throughout the spine. No evidence for fracture. No acute process identified. IMPRESSION: 1. No evidence for intraoperative complication. 2. Please see the operative/procedural note for further details. [facility], , 02/05/2025 2:06 PM
== END 2025-02-05 13:20 | disposition home or self-care (01) ==
LOC: ORPAIN 10:20
PROVIDERS: ATTEND Pain Medicine Interventional Pain Medicine
DX: M79.18 Myalgia, other site (principal)
CPT/HCPCS: 20550; J2795; J1010

== ENCOUNTER → 2025-02-22 | Outpatient (CLI) | payer MEDICARE ==
[2025-02-22 11:26] VITALS: BP 109/55; PULSE 59; RESP 18
--- NOTE | 2025-02-22 15:59 | P.PAINPG ---
Objective - Vital Signs Vital signs: Vital Signs Temp Pulse 59 L 02/22/25 11:14 Resp 18 02/22/25 11:14 BP 109/55 02/22/25 11:14 Pulse Ox 94 L 02/22/25 11:14 FiO2 Intake & Output 02/21/25 02/22/25 02/22/25 18:59 06:59 18:59 Weight 102.965 kg PQRS Measure Charge Sheet Mode of Arrival: Ambulatory Comment: HISTORY OF PRESENT ILLNESS: A 80 yr old male w at side presents today w severe and chronic LBP > 1 yr secondary to L2-L4 Fixation, L2-L3 Discectomy w Posterolateral Fusion for evaluation s/p BL iliolumbar ligament #1. Pt states he experienced 0% pain relief s/p procedure. Pt states pain level is provoked at 10 /10 in intensity, constant, localized in the lumbar spine, predominantly axial, tight in character without shooting pain. Pain is provoked by walking for periods > 10 min. Pain is alleviated by PT x 6 wks which ended in Spring 2023, physician guided home stretches daily since Spring 2023, heat, ice, medications, repositioning and rest . Interventional procedures include BL RFA L3-L5 (12/11/24), BL iliolumbar ligament x1 (02/17) Medications include ASA, Excedrin REVIEW OF ORGAN SYSTEMS: CONSTITUTIONAL: No fevers or chills. No recent weight loss. NEUROLOGICAL: + numbness and tingling along the distal extremities. No seizure disorders or headaches. MUSCULOSKELETAL: + pain PSYCHIATRIC: Denies current depression or suicidal thoughts. Physical Examinations : Constitutional : Cooperative , not in acute distress . Neurologic : Cranial nerve II to XII intact. No focal neurological deficits. Psychiatric : alert & oriented x 3. Matching mood & appropriate affect. Judgment & insight intact. Musculoskeletal : Cervical Spine Motor strength in the deltoid and biceps: Normal right side. Normal Left side Motor strength biceps and the wrist extensors: Normal right side . Normal left side Motor strength in the triceps muscle: Normal right side. Normal left side Deep tendon reflexes: Normal at the biceps. Normal at Brachioradialis. Normal at triceps Vertebral body tenderness to deep palpation over Cervical facet loading test: positive bilaterally Spurling test: positive bilaterally Neck distraction test: positive bilaterally Jarod sign: positive bilaterally Lumbar spine Motor strength lower extremities ,thigh and legs 5/5 Right side , 5/5 Left side Deep tendon reflexes : Normal Knee Jerk. Normal Ankle Jerk Vertebral body tenderness over Sam Test positive Lumbar facet Loading Test: positive Right / positive Left L5-S1 Range of motion of the lumbar spine Flexion 30 degrees, extension 10 degrees Straight Leg Raise test: Left/ Right positive at degrees Harvinder test: positive right / positive left. Severe tenderness over the Sacroiliac joint on the Right / Left sides Gaenslen test: positive bilaterally Seated flexion test: positive bilaterally. Sacral spine : Severe tenderness over the Sacroiliac joint: right side / left side Range of motion: Flexion of the lumbar spine <60 degrees Range of motion: Extension of the lumbar spine <20 degrees Gaenslen's Test positive Harvinder test: positive right side / left side Thigh Thrust Test Sacral Thrust Test Imaging: CT non contrast lumbar spine from 11/05/23 reviewed Assessment/ Plan : L2-L4 Fixation, L2-L3 Discectomy w posterolateral Fusion Recommendation of medication management. Percocet 7.5/325mg #90 w RF. Opiate/ narcotic agreement signed 02/22/25. Risks, benefits of procedure discussed and patient verbalized understanding. Use, side effects, adverse reactions, safe storage discussed. All questions answered. I have spent greater than 30 minutes on patient care today. Dr Rubio was available by phone for the evaluation of this patient. The time was used to review the medical records including relevant urine studies and Prescription history (MAPs), review of the available imaging, evaluation and examination of the patient, coordination of care with the medical staff and if applicable referring physicians, as well as creation of the medical record - Pain Location Bilateral Lower Back Non-Pharmacological Interventions: Physical Therapy PQRS Narrative: Blood Pressure 109/55 Pain Intensity [Bilateral 10 Lower Back] Scale Used Numeric (1 - 10) Hx Alcohol Use (MH) No Home Medications: Ambulatory Orders Aspirin [Adult Low Dose Aspirin EC] 81 mg PO DAILY 10/31/22 Omeprazole 20 mg PO QAM 10/31/22 amLODIPine [Norvasc] 2.5 mg PO QAM 10/31/22 carBAMazepine 200 mg PO HS 10/31/22 tiZANidine [Zanaflex] 4 mg PO HS 10/31/22 Citalopram Hydrobromide [CeleXA] 40 mg PO QAM 10/29/23 Metoprolol Succinate (ER) [Toprol XL] 100 mg PO QAM 10/29/23 Tamsulosin [Flomax] 0.4 mg PO QAM 10/29/23 Simvastatin 40 mg PO HS 07/15/24 lisinopriL [Zestril] 20 mg PO QAM 11/09/24 oxyCODONE HCL/ACETAMINOPHEN [Percocet 7.5-325 mg] 1 tab PO Q4HR PRN 3 Days #18 tab 01/11/25 Controlled Substance Measures - Controlled Substance Measures Is patient prescribed a controlled substance at discharge?: Yes When asked, does pt state using other controlled substances?: No If prescribed controlled substance>3 days was MAPS reviewed?: Yes If Rx opioid, was Start Talking consent form obtained?: Yes Was information provided regarding opioid addiction?: Yes
== END ==
LOC: PNWHC3 10:36
PROVIDERS: ATTEND Specialist
DX: M51.26 Other intervertebral disc displacement, lumbar region (principal); M43.26 Fusion of spine, lumbar region; Z98.890 Other specified postprocedural states
CPT/HCPCS: 99211